=== PATIENT | male | born 2000 | race Caucasian/White ===

== ENCOUNTER 2018-11-30 16:31 | Emergency (ER) | payer SELFPAY ==
[2018-11-30 16:32] VITALS: BP 126/83; PULSE 113; RESP 18; TEMP 36.7; O2SAT 97; BMI 17.2
--- NOTE | 2018-11-30 17:27 | ED.DCSUM_ITS ---
History of Present Illness Chief Complaint: Male Pain/Injury Informant: Patient Onset: Days - 3 Narrative: White penile discharge for 3 days. Dysuria. Sexual intercourse new partner past 10 days with no protection. No history of STDs. No fevers. No ulcers. History of meth use, last used 3 days ago. Denies fever. Prior similar symptoms: No Past Medical History - Allergies and Home Meds Allergies/Adverse Reactions: Allergies No Known Allergies Allergy (Verified 11/30/18 16:32) Smoking Status: Current every day smoker Review of Systems All systems negative except as indicated General: Denies: Chills, Fever Gastrointestinal: Denies: Abdominal pain, Nausea, Vomiting Genitourinary: Reports: Dysuria Physical Exam Vital Signs/Narrative: Vital Signs Temp Pulse Resp BP Pulse Ox 11/30/18 16:32 98.1 F 113 H 18 126/83 H 97 Inital Vital Signs reviewed: Yes General: Well nourished, Well developed, No Acute Distress Head: Normocephalic, Atraumatic Eyes: Perrl, EOMI ENT: Moist mucous membranes, No rhinorrhea Neck: Supple, Nontender Cardiovascular: Regular rate, Regular rhythm, No murmurs Respiratory: No distress, CTA bilaterally, Chest nontender Abdomen: Soft, Nontender, Nondistended, Normal bowel sounds : - - No ulcerations, is white penile discharge. No testicular or scrotal tenderness. Back: Nontender, Normal Inspection Extremities: Nontender, No edema Skin: Normal color, No rash, - - Bilateral forearms intermittent puncture woun ds, no surrounding erythema or drainage. Nontender to palpation. Neurological: Alert, Oriented x3, Cranial nerves II-XII grossly intact, Normal Strength, Normal Sensation Psychological: Normal affect, Normal Mood Diagnostic/Tx/Re-eval - Medical Decision Making Patient history exam concerns for urethritis secondary to gonorrhea. Urine was sent for GC chlamydia. We will treat empirically with Rocephin and Zithromax. He is given follow-up as an outpatient. Discussed abstinence from meth use. ED Disposition - Plan for ED Patient: Disposition: Home or Assisted Living Diagnosis: Urethritis, Methamphetamine use Instructions: ED STD Male Treated, Understanding Methamphetamine Abuse and Addiction Referrals: Trish Mendez [NON-STAFF] - 3-5 Days
[2018-11-30] MEDS: Azithromycin 250 MG Tablet 1000 MG PO (18:07)
[2018-11-30] MEDS: Ceftriaxone 1 GM Vial 0.25 GM IM (18:07)
[2018-11-30 18:39] VITALS: BP 122/74; PULSE 65; RESP 16; TEMP 36.6; O2SAT 97
[2018-11-30 19:17] LABS: Chlamydia Trachomatis by PCR POSITIVE (Negative); Neisserai gonorrhoeae by PCR Positive (Negative)
[2018-11-30 19:18] LABS: Probe Check PASS
--- NOTE | 2018-11-30 19:44 | ED.RN ---
CALL FROM LAB. PT POSITIVE FOR GHONNARHEA,, AND CHLAMYDIA. DR. JERONIMO.
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
== END 2018-11-30 18:40 | disposition home or self-care (01) ==
LOC: ED 17:35
PROVIDERS: Emergency Provider Emergency Medicine
DX: A56.01 Chlamydial cystitis and urethritis (principal); A54.01 Gonococcal cystitis and urethritis, unspecified; F15.90 Other stimulant use, unspecified, uncomplicated; F17.200 Nicotine dependence, unspecified, uncomplicated
CPT/HCPCS: 87491; 87591; 96372; 99283

== ENCOUNTER 2019-04-17 02:48 | Emergency (ER) | payer OTHER, MEDICAID, SELFPAY ==
[2019-04-17] VITALS (8 sets, daily range): BP systolic 133–163; BP diastolic 72–99; PULSE 89–115; RESP 16–21; TEMP 36.4–37.2; O2SAT 95–100
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
--- NOTE | 2019-04-17 02:55 | EKG12_ITS ---
Test Reason : CG Blood Pressure : / mmHG Vent. Rate : 094 BPM Atrial Rate : 094 BPM P-R Int : 120 ms QRS Dur : 096 ms QT Int : 338 ms P-R-T Axes : 080 088 086 degrees QTc Int : 422 ms Normal sinus rhythm Normal ECG Confirmed by MULUGETA GOMEZ ([id number]), manager editorial VIKTORIA FRITZ ([id number]) on 04/21/2019 12:29:02 PM Referred By: Confirmed By:MULUGETA GOMEZ
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
[2019-04-17] MEDS: 0.9% Normal Saline 1,000 ML 999 ML IV ×2 (03:36→05:30)
[2019-04-17 03:42] LABS: Absolute Lymphocyte Count 1.92 X10^3/uL (0.83-4.51); Absolute Neutrophil Count 16.9 X10^3/uL (2.0-7.7); Basophil# 0.08 X10^3/uL; Basophil% 0.4 % (0-1); Eosinophil# 0.12 X10^3/uL; Eosinophils% 0.6 % (0-5); Hematocrit 43.9 % (40-54); Lymphocyte # 1.92 X10^3/ul (4.0); Lymphocyte % 9.3 % (19-41); Mean Corp Hgb Conc 34.2 g/dL (32-36); Mean Corpuscular Hgb 29.6 pg (27.0-32.0); Mean Corpuscular Volume 86.8 fL (80-94); Mean Platelet Vol. 8.8 fl (6.2-12.0); Monocyte# 1.31 X10^3/uL; Monocyte% 6.4 % (0-10); NRBC Flagged by Analyzer 0 % (0-5); Neutrophil # 16.92 X10^3/uL (2.7-7.7); Neutrophil % 82.1 % (47-70); Platelet Count 294 K/mm3 (150-450); RBC Distribution Width CV 13.1 % (11.6-14.6); Red Blood Count 5.06 M/mm3 (4.6-6.2); White Blood Count 20.6 K/mm3 (4.4-11.0)
[2019-04-17 03:51] LABS: International Normalized Ratio 1.1
[2019-04-17 03:57] LABS: Color, Urine Yellow (Yellow); Glucose, Dipstick Normal (Normal); Ketone-Dipstick 5 mg/dl (Negative); Leukocyte Esterase-Dipstick 25 /ul (Negative); Nitrite-Dipstick Negative (Negative); Occult Blood-Urine 150 /ul (Negative); Protein-Dipstick 500 mg/dl (Negative); Urine Bilirubin Dipstick Negative (Negative); Urine Clarity Sl. Cloudy (Clear); Urine Urobilinogen Normal (Normal); Urine pH 6.5 (5.0 - 8.0)
--- NOTE | 2019-04-17 04:00 | ED.RN ---
NO OLD EKGS
[2019-04-17 04:01] LABS: Vista UDS pH Range 6
[2019-04-17 04:03] LABS: Bacteria RARE /hpf (None Seen); Mucous, Urine 3+ /hpf (<or=2+); Red Blood Cells-Urine 0-5 SEEN /hpf (0-5); Squamous Epithelial Cells - UA 0-5 SEEN /hpf (0-5); White Blood Cells 0-5 SEEN /hpf (0-5)
[2019-04-17 04:03] LABS: AST(SGOT) 29 U/L (15-37); Alanine Aminotransfer ALT/SGPT 25 U/L (16-61); Albumin, Serum 3.9 g/dL (3.2-5.0); Alkaline Phosphatase 105 U/L (45-117); Anion Gap 8 (5-15); BUN 22 mg/dL (7-18); BUN/Creat Ratio 21.8 RATIO (10-20); Bilirubin, Direct 0.15 mg/dL (0.00-0.30); Calcium,Total 9.4 mg/dL (8.5-10.1); Chloride 105 mmol/L (98-107); Creatinine, Serum 1.01 mg/dL (0.70-1.30); EST Glomerular Filtration Rate 100 mL/min (>60); Est Glom Filt Rate - Afr Amer 121 mL/min (>60); Estimated Creatinine Clearance 110.23 ml/min; Globulin 4.1 g/dL (2.2-4.2); Glucose 107 mg/dL (74-106); Lipase 61 U/L (73-393); Potassium 4.5 mmol/L (3.5-5.1); Sodium Level 143 mmol/L (136-145)
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
[2019-04-17 04:34] LABS: Amphetamine Urine VISTA POSITIVE (<1000 ng/mL); Barbiturate Urine VISTA NEGATIVE (< 200 ng/mL); Benzodiazepine Urine VISTA NEGATIVE (< 200 ng/mL); Cocaine Urine VISTA NEGATIVE (< 300 ng/mL); Ecstacy Urine VISTA POSITIVE (< 500 ng/mL); Methadone Urine VISTA NEGATIVE (< 300 ng/mL); PCP Urine VISTA NEGATIVE (< 25 ng/mL); THC Urine VISTA NEGATIVE (< 50 ng/mL)
[2019-04-17 04:48] LABS: CPK Total, Creatine Kinase 377 U/L (39-308)
--- NOTE | 2019-04-17 05:38 | PCM.HP.STD ---
History of Present Illness The patient is a 18 year old M [] Past Medical History Allergies No Known Allergies Allergy (Verified 04/17/19 03:04) Home Medications: Ambulatory Orders Medication Instructions Recorded NK 04/17/19 Smoking Status: Current every day smoker - Physical Exam Vital Signs Temp Pulse Resp BP Pulse Ox 99.0 F 106 H 20 H 152/77 H 98 04/17/19 05:02 04/17/19 05:37 04/17/19 05:37 04/17/19 05:37 04/17/19 05:37 Oxygen Delivery Method Room Air Weight: 66.8 kg Body Mass Index (BMI) 20.0 Laboratory Tests Past 24 Hrs 04/17/19 04/17/19 04/17/19 03:30 03:30 03:30 WBC 20.6 H RBC 5.06 Hgb 15.0 Hct 43.9 MCV 86.8 MCH 29.6 MCHC 34.2 RDW Std Deviation 41.0 RDW Coeff of Marquita 13.1 Plt Count 294 MPV 8.8 Immature Gran % (Auto) 1.200 H Neut % (Auto) 82.1 H Lymph % (Auto) 9.3 L [place] % (Auto) 6.4 Eos % (Auto) 0.6 Baso % (Auto) 0.4 Absolute Neuts (auto) 16.9 H Absolute Lymphs (auto) 1.92 Nucleated RBC % 0 PT INR Sodium 143 Potassium 4.5 Chloride 105 Carbon Dioxide 30.0 Anion Gap 8 BUN 22 H Creatinine 1.01 Estim Creat Clear Calc 110.23 Est GFR (MDRD) Af Amer 121 Est GFR (MDRD) Non-Af 100 BUN/Creatinine Ratio 21.8 H Glucose 107 H Calcium 9.4 Total Bilirubin 0.80 Direct Bilirubin 0.15 AST 29 ALT 25 Alkaline Phosphatase 105 Total Creatine Kinase Total Protein 8.0 Albumin 3.9 Globulin 4.1 Lipase 61 L Urine Color Urine Clarity Urine pH Ur Specific [place] Urine Protein Urine Glucose (UA) Urine Ketones Urine Occult Blood Urine Nitrite Urine Bilirubin Urine Urobilinogen Ur Leukocyte Esterase Urine RBC Urine WBC Ur Squamous Epith Cells Urine Bacteria Urine Mucus Urine Opiates Screen Urine Methadone Screen Ur Barbiturates Screen Ur Phencyclidine Scrn Ur Amphetamines Screen U Methamphetamin-MDMA U Benzodiazepines Scrn Urine Cocaine Screen U Cannabinoids Screen Ur Drug Screen Comment Ethyl Alcohol 4.0 Blood Type Antibody Screen 04/17/19 04/17/19 04/17/19 03:30 03:30 03:30 WBC RBC Hgb Hct MCV MCH MCHC RDW Std Deviation RDW Coeff of Marquita Plt Count MPV Immature Gran % (Auto) Neut % (Auto) Lymph % (Auto) [place] % (Auto) Eos % (Auto) Baso % (Auto) Absolute Neuts (auto) Absolute Lymphs (auto) Nucleated RBC % PT 14.0 INR 1.1 Sodium Potassium Chloride Carbon Dioxide Anion Gap BUN Creatinine Estim Creat Clear Calc Est GFR (MDRD) Af Amer Est GFR (MDRD) Non-Af BUN/Creatinine Ratio Glucose Calcium Total Bilirubin Direct Bilirubin AST ALT Alkaline Phosphatase Total Creatine Kinase 377 H Total Protein Albumin Globulin Lipase Urine Color Urine Clarity Urine pH Ur Specific [place] Urine Protein Urine Glucose (UA) Urine Ketones Urine Occult Blood Urine Nitrite Urine Bilirubin Urine Urobilinogen Ur Leukocyte Esterase Urine RBC Urine WBC Ur Squamous Epith Cells Urine Bacteria Urine Mucus Urine Opiates Screen Urine Methadone Screen Ur Barbiturates Screen Ur Phencyclidine Scrn Ur Amphetamines Screen U Methamphetamin-MDMA U Benzodiazepines Scrn Urine Cocaine Screen U Cannabinoids Screen Ur Drug Screen Comment Ethyl Alcohol Blood Type A POSITIVE Antibody Screen NEGATIVE 04/17/19 04/17/19 03:52 03:52 WBC RBC Hgb Hct MCV MCH MCHC RDW Std Deviation RDW Coeff of Marquita Plt Count MPV Immature Gran % (Auto) Neut % (Auto) Lymph % (Auto) [place] % (Auto) Eos % (Auto) Baso % (Auto) Absolute Neuts (auto) Absolute Lymphs (auto) Nucleated RBC % PT INR Sodium Potassium Chloride Carbon Dioxide Anion Gap BUN Creatinine Estim Creat Clear Calc Est GFR (MDRD) Af Amer Est GFR (MDRD) Non-Af BUN/Creatinine Ratio Glucose Calcium Total Bilirubin Direct Bilirubin AST ALT Alkaline Phosphatase Total Creatine Kinase Total Protein Albumin Globulin Lipase Urine Color Yellow Urine Clarity Sl. Cloudy Urine pH 6.5 Ur Specific [place] 1.020 Urine Protein 500 H Urine Glucose (UA) Normal Urine Ketones 5 H Urine Occult Blood 150 H Urine Nitrite Negative Urine Bilirubin Negative Urine Urobilinogen Normal Ur Leukocyte Esterase 25 H Urine RBC 0-5 SEEN Urine WBC 0-5 SEEN Ur Squamous Epith Cells 0-5 SEEN Urine Bacteria RARE Urine Mucus 3+ Urine Opiates Screen NEGATIVE Urine Methadone Screen NEGATIVE Ur Barbiturates Screen NEGATIVE Ur Phencyclidine Scrn NEGATIVE Ur Amphetamines Screen POSITIVE H U Methamphetamin-MDMA POSITIVE H U Benzodiazepines Scrn NEGATIVE Urine Cocaine Screen NEGATIVE U Cannabinoids Screen NEGATIVE Ur Drug Screen Comment Ethyl Alcohol Blood Type Antibody Screen
== END 2019-04-17 07:50 | disposition short-term general hospital (02) ==
PROVIDERS: Emergency Provider Emergency Medicine
DX: R41.82 Altered mental status, unspecified (principal); R91.8 Other nonspecific abnormal finding of lung field; V89.2XXA Person injured in unspecified motor-vehicle accident, traffic, initial encounter; Y93.9 Activity, unspecified; Y92.9 Unspecified place or not applicable; J32.9 Chronic sinusitis, unspecified; K59.00 Constipation, unspecified; F15.10 Other stimulant abuse, uncomplicated; F17.200 Nicotine dependence, unspecified, uncomplicated
CPT/HCPCS: 70450; 71045; 71260; 72125; 72170; 74177; 80048; 80076; 80307; 80320; 81001; 82550; 83690; 85025; 85610; 86850; 86900; 86901; 93005; 96360; 96361; 99285; J7030; Q9967; G0480

== ENCOUNTER 2019-08-02 23:43 | Inpatient (IN) | payer OTHER, MEDICAID, SELFPAY ==
[2019-08-02 23:44] VITALS: BP 146/112; PULSE 147; RESP 18; TEMP 36.5; O2SAT 98; BMI 20.6
[2019-08-02 23:50] VITALS: BP 100/77; PULSE 145; RESP 20
[2019-08-03] VITALS (30 sets, daily range): BP systolic 75–123; BP diastolic 33–74; PULSE 85–140; RESP 10–28; TEMP 36.6–37.9; O2SAT 92–100; BMI 21.4; BMI 21.5
--- NOTE | 2019-08-03 00:15 | ED.VIS.GEN ---
History of Present Illness Chief Complaint: Overdose Informant: Patient, [employer] Installer Helper Onset: Today Associated Symptoms: nausea, shaky, thirsty Narrative: Patient has been addicted to heroin for the last year or so, he was with some friends and accidentally overdosed tonight, patient denies this being a suicide attempt. He became apneic and unconscious and EMS was called. They gave 2 vials of Narcan intranasal, and when that did not help, they placed an intraosseous line and gave him 2 more vials of Narcan, which woke him up. He now feels malaised and shaky and nauseated. States he is gone through detox before, when asked if he is interested in a tonight he states no. Past Medical History - Allergies and Home Meds Allergies/Adverse Reactions: Allergies No Known Allergies Allergy (Verified 08/02/19 23:47) Primary Care Physician: Care Physician,No Primary [Primary Care Provider] - Past Medical History: None Surgical History: noncontributory Smoking Status: Current every day smoker Alcohol: None Drugs: Heroin Review of Systems General: Reports: Malaise. Denies: Chills, Fever, Sweats Eyes: Denies: Visual changes - bilaterally, Diplopia ENT: Denies: Rhinorrhea, Sore throat Cardiovascular: Denies: Chest pain, Palpitations Respiratory: Denies: Dyspnea, Cough, Dyspnea on exertion Gastrointestinal: Reports: Nausea. Denies: Abdominal pain, Vomiting, Diarrhea, Melena, Hematochezia Genitourinary: Denies: Dysuria, Hematuria, Frequency Musculoskeletal: Denies: Back pain, Extremity Pain Skin: Denies: Rash, Wounds Neurological: Denies: Headache, Weakness, Numbness Physical Exam Vital Signs/Narrative: Vital Signs Temp Pulse Resp BP Pulse Ox 08/02/19 23:44 97.7 F L 147 H 18 146/112 H 98 Inital Vital Signs reviewed: Yes General: Well nourished, Well developed, No Acute Distress Head: Normocephalic, Atraumatic Eyes: Perrl, EOMI ENT: Moist mucous membranes, No rhinorrhea Neck: Supple, Nontender Cardiovascular: Regular rate, Regular rhythm, No murmurs, Tachycardia Respiratory: No distress, CTA bilaterally, Chest nontender Abdomen: Soft, Nontender, Nondistended, Normal bowel sounds Back: Nontender, Normal Inspection Extremities: Nontender, No edema Skin: Normal color, No rash, No Trauma - No signs of upper extremity injection site infection Neurological: Alert, Oriented x3, Cranial nerves II-XII grossly intact, Normal Strength, Normal Sensation Psychological: Normal Mood, - - Anxious Diagnostic/Tx/Re-eval Impressions Chest CTA 08/03/19 05:05 IMPRESSION: 1. No pulmonary embolus detected. 2. Bilateral lower lobe groundglass opacities, possibly related to early/mild pneumonia or aspiration. Individualized dose optimization techniques were used for this CT. at 0627 Reported and signed by: Kristi Marquis MD Electronically Signed: Kristi Marquis MD at 6:27 EST Tel , Service support , 08/03/19 05:05 CTA Chest W/WO Contrast [CT] Stat 08/03/19 07:07 Chest 1 View (Portable) [RAD] Stat Laboratory Results 08/03/19 08/03/19 05:31 05:31 WBC 16.5 H RBC 4.04 L Hgb 12.2 L Hct 35.4 L MCV 87.6 MCH 30.2 MCHC 34.5 RDW Std Deviation 41.1 RDW Coeff of Marquita 12.8 Plt Count 219 MPV 9.0 Immature Gran % (Auto) 0.800 Neut % (Auto) 85.0 H Lymph % (Auto) 4.8 L [place] % (Auto) 9.3 Eos % (Auto) 0.0 Baso % (Auto) 0.1 Absolute Neuts (auto) 14.1 H Absolute Lymphs (auto) 0.80 L Nucleated RBC % 0 [address] Review May foll Sodium 138 Potassium 4.8 Chloride 105 Carbon Dioxide 25.0 Anion Gap 8 BUN 16 Creatinine 1.21 Estim Creat Clear Calc 95.18 Est GFR (MDRD) Af Amer 98 Est GFR (MDRD) Non-Af 81 BUN/Creatinine Ratio 13.2 Glucose 84 Calcium 8.1 L Troponin I 0.804 H* - Rhythm Strip Rhythm Strip: Sinus Tach Rate: 140 Ectopy: None - Medical Decision Making Patient was observed and was given a small amount of Ativan and Phenergan to help with his nausea and apparent withdrawal symptoms, given his symptoms with Narcan and tachycardia. He felt better on multiple re-evaluations, but for the next several hours his tachycardia did not improve and his blood pressure dropped so we treated him with IV fluids. After the second liter, he has a blood pressure of 88/74 and a heart rate of 135. His pulse ox is 97 on room air. He states he feels better but feels like he needs to exert extra effort to take a deep breath. He has no pleuritic chest pain and does not feel dyspneic. He states admits that he felt fine prior to using heroin today. He states he is a daily user. Given all of this, I feel it would be in his best interest to test him further. Differential here includes dysrhythmia, pulmonary embolus, other cardiac etiologies, metabolic derangement, aspiration. Testing shows a leukocytosis, and elevated troponin, and CTA ruled out large/central pulmonary embolus but shows bilateral lower lobe groundglass opacities which may represent aspiration pneumonia. I will treat him empirically as this. After 3 L his pressure is 75/60, his heart rate has improved, I will add a lactate and I feel he needs a central line and pressors with ICU admission. Levophed ordered after chest x-ray verified central line placement. Further history obtained at this time: Patient was receiving CPR by his friends just after the overdose prior to EMS arrival. I suspect his troponin is a combination of transient hypoxemia and possibly due to receiving CPR. According to EMS, he was never pulseless for them. He was apnea, however. - Critical Care Time Critical care time (excluding procedures): 30-74 minutes - 40 minutes, including time spent discussing with consultants, arranging admission, performing direct patient care at the bedside. Time spent excludes procedure time. Procedures Procedure(s): Central line placement --indication: Septic shock, pressor support. Sterile prep and drape in a sterile fashion with chlorhexidine in the right subclavian vein site, gown and glove. Locally anesthetized with 5 cc of plain 1% lidocaine, 16 cm triple-lumen catheter placed via modified Seldinger technique, there is no complication. There were PVCs with wire placement, indicating correct placement. All 3 ports jazmin back dark red pulsatile blood and flushed without difficulty. It was sutured in place. Placement was verified by chest x-ray. No pneumothorax. ED Disposition - Plan for ED Patient: Disposition: Acute Care Hospital [facility] Diagnosis: Aspiration pneumonitis, Elevated troponin, Septic shock, Accidental heroin overdose Referrals: Care Physician,No Primary [Primary Care Provider] -
[2019-08-03] MEDS: proMETHazine 25 MG/ML Syringe 6.25 MG IV (00:32)
[2019-08-03] MEDS: LORazepam 2 MG/ML Syringe 0.5 MG IV (00:32)
[2019-08-03] MEDS: 0.9% Normal Saline 1,000 ML 999 ML IV ×4 (02:22→07:23)
--- NOTE | 2019-08-03 02:22 | NURSING ---
I/O LT LOWER LEG INITATED BY SQUAD TOO PAINFUL FOR IV BOLUS, SO THIS WAS REMOVED AND SL STARTED.
--- NOTE | 2019-08-03 05:05 | CT_ITS ---
HISTORY: TACHYCARDIA,SOB, ELEVATED BP AND WBC,PT USED HEROIN AND HAD AGONAL RESPIRATIONS,NARCAN WAS GIVEN ADDITIONAL HISTORY: None provided. TECHNIQUE: CT angiogram images of the chest were obtained with 75 mL Isovue-370 IV contrast as per pulmonary angiogram protocol. 3D MIP images used to aid in evaluation for pulmonary embolism. Number of images including paperwork: 1132 A radiation dose optimization technique was used for this scan. COMPARISON: None FINDINGS: PULMONARY ARTERIES: No pulmonary arterial filling defects. AORTA AND GREAT VESSELS: Unremarkable. HEART/PERICARDIUM: Unremarkable. MEDIASTINUM: Small amount of thymic tissue noted. ADENOPATHY: Small mediastinal and hilar nodes, not definitely enlarged by size criteria.. THYROID: Unremarkable visualized portions. LUNG PARENCHYMA: No consolidation or mass. Groundglass opacities are noted in the lower lobes, predominantly posterior and superior aspects. Mild peribronchial thickening. PLEURAL SPACES: Unremarkable. UPPER ABDOMEN: Unremarkable. OSSEOUS AND SOFT TISSUE STRUCTURES: No acute skeletal findings. CT/CTA Chest W/WO Contrast IMPRESSION: 1. No pulmonary embolus detected. 2. Bilateral lower lobe groundglass opacities, possibly related to early/mild pneumonia or aspiration. Individualized dose optimization techniques were used for this CT. at 0627 Reported and signed by: Kristi Marquis MD Electronically Signed: Kristi Marquis MD at 6:27 EST Tel , Service support ,
--- NOTE | 2019-08-03 05:05 | EKG12_ITS ---
Test Reason : OVERDOSE Blood Pressure : / mmHG Vent. Rate : 117 BPM Atrial Rate : 117 BPM P-R Int : 120 ms QRS Dur : 078 ms QT Int : 308 ms P-R-T Axes : 075 091 087 degrees QTc Int : 429 ms Sinus tachycardia Rightward axis Nonspecific T wave abnormality Abnormal ECG Confirmed by KARINA RAYMUNDO, JO ([id number]), videotape editor VIKTORIA FRITZ ([id number]) on 08/05/2019 11:24:18 AM Referred By: ALLIE Confirmed By:JO COLLINS MD
[2019-08-03 05:41] LABS: Absolute Neutrophil Count 14.1 X10^3/uL (2.0-7.7); Basophil# 0.02 X10^3/uL; Basophil% 0.1 % (0-1); Hematocrit 35.4 % (40-54); Hemoglobin 12.2 g/dL (13.0-16.5); Lymphocyte % 4.8 % (19-41); Mean Corp Hgb Conc 34.5 g/dL (32-36); Mean Corpuscular Hgb 30.2 pg (27.0-32.0); Mean Corpuscular Volume 87.6 fL (80-94); Monocyte# 1.53 X10^3/uL; Monocyte% 9.3 % (0-10); NRBC Flagged by Analyzer 0 % (0-5); Neutrophil # 14.06 X10^3/uL (2.7-7.7); POSITIVE DIFFERENTIAL YES; Platelet Count 219 K/mm3 (150-450); RBC Distribution Width CV 12.8 % (11.6-14.6); RBC Distribution Width SD 41.1 fl (35.1-43.9); Red Blood Count 4.04 M/mm3 (4.6-6.2); White Blood Count 16.5 K/mm3 (4.4-11.0)
[2019-08-03 05:42] LABS: Differential Indicated SCAN CRITERIA MET
[2019-08-03 06:13] LABS: Anion Gap 8 (5-15); BUN 16 mg/dL (7-18); BUN/Creat Ratio 13.2 RATIO (10-20); Calcium,Total 8.1 mg/dL (8.5-10.1); Chloride 105 mmol/L (98-107); Creatinine, Serum 1.21 mg/dL (0.70-1.30); EST Glomerular Filtration Rate 81 mL/min (>60); Est Glom Filt Rate - Afr Amer 98 mL/min (>60); Estimated Creatinine Clearance 95.18 ml/min; Glucose 84 mg/dL (74-106); Potassium 4.8 mmol/L (3.5-5.1); Sodium Level 138 mmol/L (136-145)
--- NOTE | 2019-08-03 06:13 | ED.RN ---
TROPONIN OF 0.[address] KELLEY. VERBALIZES UNDERSTANDING
--- NOTE | 2019-08-03 07:09 | RAD_ITS ---
STUDY: X-RAY CHEST REASON FOR EXAM: Male, 18 years old. LINE PLACEMENT TECHNIQUE: Portable chest COMPARISON: 04/17/2019 FINDINGS: There is a central venous catheter through right subclavian approach. The tip is in the superior vena cava, right atrial junction. There is no pneumothorax. There are mild bibasilar infiltrates.. There is no demonstrated pleural abnormality. Normal size heart. Normal mediastinum and junior. Normal visualized pulmonary arteries. Normal visualized aortic arch and descending thoracic aorta. Normal visualized thoracic spine. Normal visualized ribs, clavicles, and shoulders. There is no demonstrated abnormality of the visualized soft tissue structures of the upper abdomen. RAD/Chest 1 View (Portable) IMPRESSION: Placement of central venous catheter as above Mild bibasilar infiltrates Electronically Signed: Star Zhu, at 7:46 EST Tel , Service support ,
[2019-08-03 07:37] LABS: Lactic Acid 1.1 mmol/L (0.4-1.9)
--- NOTE | 2019-08-03 07:39 | NURSING ---
ICU TERELETSKY ASPIRATION PNEUMONITIS, ACCIDENTAL HEROIN OD
--- NOTE | 2019-08-03 08:11 | NURSING ---
ICU 6
--- NOTE | 2019-08-03 08:20 | PCM.HP.STD ---
Problem List (1) Accidental heroin overdose Status: Acute Qualifiers: Encounter type: initial encounter Qualified Code(s): T40.1X1A - Poisoning by heroin, accidental (unintentional), initial encounter History of Present Illness Date of Admission: 08/03/19 Chief Complaint: Heroin overdose The patient is a 18 year old M who was brought in to the emergency room at [facility] for evaluation after being found by a friend unresponsive with agonal respirations, he was brought in by squad who administered Narcan-patient is a known heroin user, he uses IV heroin. Patient initially responded well to Narcan but his blood pressure remained low in the emergency room, multiple fluid boluses were administered with minimal effect on raising the patient's blood pressure. Patient has CT of the chest which showed bilateral lower lobe groundglass opacities concerning for aspiration, patient's white blood cell count was elevated, patient's chemistry panel was unremarkable, and the patient's troponin was elevated. EKG showed a sinus tachycardia with nonspecific ST-T wave changes and right axis deviation. Patient will be admitted to ICU, I talked briefly with critical care about his admission. I also called patient's grandfather regarding his medical care at the request of the patient. Grandfather's phone number is [phone] Past Medical History Allergies No Known Allergies Allergy (Verified 08/02/19 23:47) Home Medications: Ambulatory Orders Medication Instructions Recorded NK 04/17/19 Surgical History: no surgical history Psychiatric History: No pertinent psych hx Lives: Alone Smoking Status: Current every day smoker Tobacco Use: Cigarettes Alcohol: None Drugs: Heroin - *Family History Maternal History Items: No pertinent history - in MVA Paternal History Items: No pertinent history Review of Systems Constitutional: Denies: Anorexia, Chills, Fever, Night Sweats, Malaise, Weakness, Weight Change Eyes: Denies: Cataracts, Conjunctivae Inflammation, Double vision, Drainage HEENT: Denies: Difficulty Swallowing, Dysphasia, Ear Pain, Eye Pain, Hearing Changes, Nasal bleeding, Nasal Congestion, Post Nasal Drip Cardiovascular: Denies: Chest Pain, Claudication, Chest Pressure, Chest Tightness, Edema, Palpitations Respiratory: Denies: Cough, Hemoptysis, Pleuritic Pain, Shortness of Breath, Shortness of breath at rest, Shortness of breath upon exertion Gastrointestinal: Denies: Abdominal Pain, Constipation, Diarrhea, Hematemesis, Hematochezia, Nausea, Melena, Vomiting Genitourinary: Denies: Dysuria, Frequency, Hematuria, Hesitancy, Urgency Musculoskeletal: Denies: Back Pain, Foot Pain, Hand Pain, Joint Pain, Joint stiffness, Joint swelling, Joint Tenderness, Leg Pain Skin: Denies: Dryness, Pruritis, Rash Neurological: Denies: Blurred vision, Double vision, Slurred speech, Difficulty swallowing, Focal weakness, Headaches, Incoordination, Numbness, Tingling Psychiatric: Denies: Anxiety, Depression, Homicidal Ideations, Suicidal Ideations Endocrine: Denies: Change in Body Habitus, Heat/ Cold Intolerance, Polydipsia, Polyuria Hematologic/ Lymphatic: Denies: Adenopathy, Anemia, Easy Bruising, Easy Bleeding, Petechiae, Purpura VTE Information - Inpt Only VTE Present on Admission: No VTE Mechan Device Prophylaxis: SCD's VTE Pharm Prophylaxis ordered?: No Reason prophylaxis not ordered:: Treatment Not Indicated Patient Problems: Active and Suspected Problems Aspiration pneumonitis (Acute) Elevated troponin (Acute) Septic shock (Acute) Accidental heroin overdose (Acute) - Physical Exam Vitals/I&O's: Vital Signs Temp Pulse Resp BP Pulse Ox 99.7 F H 103 H 17 109/55 L 99 08/03/19 08:03 08/03/19 08:03 08/03/19 08:03 08/03/19 08:03 08/03/19 08:03 Oxygen Delivery Method Room Air Weight: 69.1 kg Body Mass Index (BMI) 20.6 Intake and Output for Last 24 Hours 08/01/19 08/02/19 08/03/19 23:59 23:59 23:59 Intake Total 3251.63 / 3251.63 Balance 3251.63 / 3251.63 General: Oriented x3, Cooperative, No apparent distress, Well developed, Well nourished, Lethargic HEENT: Atraumatic, PERRLA, EOMI, Normocephalic Oral: Moist Mucosa Neck: Supple, Trachea Midline, Thyroid Normal Size and Texture Lungs: Clear to auscultation, Normal air movement, No rhonchi, No wheeze, No rales Cardiovascular: Regular rate, Regular Rhythm, Normal S1, Normal S2, No murmurs, PMI Normal, No rub noted, No Gallop Abdomen: Bowel Sounds Present, Soft, Non Tender, Non-Distended Extremities: No clubbing, No cyanosis, No edema, Capillary Refill Less than 3 Seconds Skin: No rashes, No breakdown Musculoskeletal: No Tenderness to Palpation of Joints or Extremities Neurological: Cranial nerves II-XII grossly intact, Neuro grossly intact, Sensory exam intact to light touch and pain Psych/Mental Status: Normal Affect, Appropriate, Alert and oriented to time, place, person, mood and affect Laboratory Results 08/03/19 05:31: WBC 16.5 H, RBC 4.04 L, Hgb 12.2 L, Hct 35.4 L, MCV 87.6, MCH 30.2, MCHC 34.5, RDW Std Deviation 41.1, RDW Coeff of Marquita 12.8, Plt Count 219, MPV 9.0, Immature Gran % (Auto) 0.800, Neut % (Auto) 85.0 H, Lymph % (Auto) 4.8 L, [place] % (Auto) 9.3, Eos % (Auto) 0.0, Baso % (Auto) 0.1, Absolute Neuts (auto) 14.1 H, Absolute Lymphs (auto) 0.80 L, Nucleated RBC % 0, Diff Path Review November08/03/19 05:31: Sodium 138, Potassium 4.8, Chloride 105, Carbon Dioxide 25.0, Anion Gap 8, BUN 16, Creatinine 1.21, Estim Creat Clear Calc 95.18, Est GFR (MDRD) Af Amer 98, Est GFR (MDRD) Non-Af 81, BUN/Creatinine Ratio 13.2, Glucose 84, Calcium 8.1 L, Troponin I 0.804 H* 08/03/19 07:00: Lactic Acid 1.1 Current Medications Norepinephrine Bitartrate 8 mg (/ Sodium Chloride) 250 mls @ 9.375 mls/hr CONT INF .[id number] [facility]; Protocol Last Titration: 08/03/19 08:03 Dose: 5 mcg/min, 9.4 mls/hr Documented by: Assessment/Plan All Active Problems Aspiration pneumonitis (Acute) Elevated troponin (Acute) Septic shock (Acute) Accidental heroin overdose (Acute) #1 septic shock-secondary to aspiration pneumonia-patient will be admitted to ICU, Levophed will be continued-hopefully this can be weaned down or off the patient, patient has had multiple fluid boluses in the emergency room. #2 aspiration pneumonia-patient will be kept on Unasyn #3 heroin overdose #4 heroin addiction-patient will be started on protocol for opiate withdrawal stabilization when he is safe to start these medications. #5 elevated troponin-probably secondary to hypoxia, I do not believe he needs repeat troponins cycled Code Visit Inpatient E&M: 93988 Init Hosp L3
--- NOTE | 2019-08-03 08:22 | CON.PCM_ITS ---
Reason for Consult Date of Consultation: 08/03/19 Reason for Consultation: Distributive shock/heroin overdose History of Present Illness: The patient is a 18-year-old male, with a history as outlined below, who presented to the emergency department on August 03 following an accidental opiate overdose. The patient apparently became apneic and unconscious. EMS was contacted and provided both intranasal and IV Narcan. The patient responded positively to reversal with Narcan. The patient does report a longstanding history of heroin dependency, with 1 previous overdose in the past. On presentation to the emergency department, the patient was noted to be afebrile, but was tachycardic and tachypneic. He was saturating 98% on room air. Laboratory evaluation revealed an elevated white blood cell count to 16,000. Chemistry profile was largely unrevealing. Lactate was within normal limits. Initial troponin was elevated to 0.804. A CTA chest was obtained which revealed no evidence for pulmonary embolism. Groundglass opacities were noted in the bilateral lower lobes. During the patient's emergency department stay, he remained tachycardic and subsequently developed hypotension. He was treated with supplemental IV fluid hydration. Unfortunately, the patient was not responsive to fluid resuscitation. Therefore, a central venous catheter was placed and the patient was started on Levophed to maintain hemodynamic stability. In addition, he was placed on empiric antimicrobials. He was then transferred to the medical intensive care unit for further management. Past Medical History Allergies No Known Allergies Allergy (Verified 08/02/19 23:47) Home Medications: Ambulatory Orders Medication Instructions Recorded NK 04/17/19 Surgical History: noncontributory Smoking Status: Current every day smoker Alcohol: None Drugs: Heroin - *Family History Maternal History Items: No pertinent history - in MVA Paternal History Items: No pertinent history Review of Systems Constitutional: Denies: Chills, Fever Eyes: Denies: Blurred vision, Double vision HEENT: Denies: Head Aches, Sinus Congestion, Sinus Drainage Cardiovascular: Denies: Chest Pain, Palpitations Respiratory: Reports: Shortness of Breath Gastrointestinal: Denies: Abdominal Pain, Nausea, Vomiting Genitourinary: Denies: Dysuria Musculoskeletal: Denies: Joint Pain, Joint Tenderness Skin: Denies: Rash, Wounds Neurological: Denies: Numbness, Tingling, Focal weakness Psychiatric: Denies: Anxiety, Depression, Homicidal Ideations, Suicidal Ideations Hematologic/ Lymphatic: Denies: Easy Bruising, Easy Bleeding Patient Problems: Active and Suspected Problems Aspiration pneumonitis (Acute) Elevated troponin (Acute) Septic shock (Acute) Accidental heroin overdose (Acute) Objective: The patient's most recent lab work, culture data and imaging studies have all been personally reviewed. - Physical Exam Vitals/I&O's: Vital Signs Temp Pulse Resp BP Pulse Ox 99.7 F H 103 H 17 109/55 L 99 08/03/19 08:03 08/03/19 08:03 08/03/19 08:03 08/03/19 08:03 08/03/19 08:03 Oxygen Delivery Method Room Air Weight: 152 lb 5.431 oz Body Mass Index (BMI) 20.6 Intake and Output for Last 24 Hours 08/01/19 08/02/19 08/03/19 23:59 23:59 23:59 Intake Total 3251.63 / 3251.63 Balance 3251.63 / 3251.63 General: Alert, Cooperative, No apparent distress HEENT: Atraumatic, PERRLA, Normocephalic Oral: No Gingival or Mucosal Lesions/ Ulcerations Neck: Supple, No Nodes, Trachea Midline, - - Central venous catheter currently in place Lungs: Normal air movement, No rhonchi, No wheeze, No rales Cardiovascular: Regular rate, Regular Rhythm, Normal S1, Normal S2 Abdomen: Bowel Sounds Present, Soft, Non Tender Extremities: No clubbing, No cyanosis, No edema Skin: - - Injection site at left antecubital fossa does not appear grossly infected. Musculoskeletal: No Muscle Wasting Lymphatic: No Cervical, Supraclavicular, or Inguinal Adenopathy Neurological: Neuro grossly intact Psych/Mental Status: Normal Affect, Appropriate Labs (Last 48 Hours) 08/03/19 08/03/19 08/03/19 05:31 05:31 07:00 WBC 16.5 H RBC 4.04 L Hgb 12.2 L Hct 35.4 L MCV 87.6 MCH 30.2 MCHC 34.5 RDW Std Deviation 41.1 RDW Coeff of Marquita 12.8 Plt Count 219 MPV 9.0 Immature Gran % (Auto) 0.800 Neut % (Auto) 85.0 H Lymph % (Auto) 4.[address] [facility] % (Auto) 9.3 Eos % (Auto) 0.0 Baso % (Auto) 0.1 Absolute Neuts (auto) 14.1 H Absolute Lymphs (auto) 0.80 L Nucleated RBC % 0 [address] Review May foll Sodium 138 Potassium 4.8 Chloride 105 Carbon Dioxide 25.0 Anion Gap 8 BUN 16 Creatinine 1.21 Estim Creat Clear Calc 95.18 Est GFR (MDRD) Af Amer 98 Est GFR (MDRD) Non-Af 81 BUN/Creatinine Ratio 13.2 Glucose 84 Lactic Acid 1.1 Calcium 8.1 L Troponin I 0.804 H* Clinical Impression(s) from Imaging Studies Chest CTA 08/03/19 05:05 IMPRESSION: 1. No pulmonary embolus detected. 2. Bilateral lower lobe groundglass opacities, possibly related to early/mild pneumonia or aspiration. Individualized dose optimization techniques were used for this CT. at 0627 Reported and signed by: Kristi Marquis MD Electronically Signed: Kristi Marquis MD at 6:27 EST Tel , Service support , Chest X-Ray 08/03/19 07:09 IMPRESSION: Placement of central venous catheter as above Mild bibasilar infiltrates Electronically Signed: Star Zhu at 7:46 EST Tel , Service support , Current Medications Norepinephrine Bitartrate 8 mg (/ Sodium Chloride) 250 mls @ 9.375 mls/hr CONT INF .[id number] [facility]; Protocol Last Titration: 08/03/19 08:03 Dose: 5 mcg/min, 9.4 mls/hr Documented by: Assessment/Plan Active and Suspected Problems Aspiration pneumonitis (Acute) Elevated troponin (Acute) Septic shock (Acute) Accidental heroin overdose (Acute) RECOMMENDATIONS: 1. Start empiric Unasyn to cover for potential aspiration. 2. Obtain blood and urine cultures. 3. Continue Levophed and attempt to maintain a mean arterial pressure at or above 65 mmHg. 4. Trend troponins and obtain echocardiogram. 5. Check MRSA screen. IMPRESSIONS: 1. Distributive shock While sepsis secondary to aspiration pneumonia is a possibility, the patient's hemodynamic status may also be the sequelae of his recent opiate overdose. His mentation has improved, nonetheless. I agree with continuing empiric antimicrobials for now. The patient has been volume resuscitated and remains on Levophed at a low dose to maintain a mean arterial pressure at or above 65 mmHg. Given that the patient did have an elevated troponin, we will plan to recheck that level to ensure that it is downtrending. An echocardiogram has also been ordered. Will obtain blood cultures as well, given the patient's IV drug use. 2. History of heroin dependency with overdose The patient's acute intoxication was reversed with Narcan. He will remain on Buprenorphine along with as needed medications to control any symptoms of withdrawal. 3. Troponin elevation Potentially secondary to CPR that the patient received while unconscious. Nevertheless, will trend troponins and obtain echocardiogram. TIME: 38 minutes of critical care time, independent of procedures, was spent addressing the patient's distributive shock, possible aspiration pneumonia, history of heroin dependency with overdose, troponin elevation, review of all data and collaboration with the care team. ([id number]) Code Visit 9xxxx: [id number] Critical care first hour
--- NOTE | 2019-08-03 08:58 | ECHOD_ITS ---
Reason For Study: DYSPNEA Procedure This was a 2D Doppler, Color Flow transthoracic echocardiogram. Exam performed portable in ICU/CCU. Left Ventricle Normal LV size. Left ventricular systolic function is normal. The estimated ejection fraction is 60 %. No regional wall motion abnormalities noted. Right Ventricle Normal RV size. Normal systolic function. Atria Normal left atrium. Normal right atrium. Mitral Valve Normal mitral valve. Tricuspid Valve Normal tricuspid valve. Mild to moderate (1-2+) tricuspid valve insufficiency. Pulmonary artery systolic pressure is 60 mmHg. Aortic Valve Normal aortic valve. Trisinus/trileaflet aortic valve. Pulmonic Valve Normal pulmonic valve. Great Vessels Normal aortic root. The pulmonary artery is normal size. Normal inferior vena cava. Pericardium/Pleural No pericardial effusion. MMode/2D Measurements & Calculations LVIDd: 5.2 cm IVSd: 0.71 cm LAV(MOD-bp): 37.0 ml LVIDs: 3.5 cm LVPWd: 0.90 cm LAV(MOD-bp) Indexed: 19.5 ml/m2 RVDd: 4.0 cm FS: 33.5 % LAV(MOD-sp2): 44.2 ml LAV(MOD-sp4): 26.1 ml LA A4 area: 13.3 cm2 RA A4 area: 11.0 cm2 Time Measurements MV dec time: 0.23 sec Doppler Measurements & Calculations MV E max mayo: 109.5 cm/sec Lat Peak E' Mayo: 20.1 cm/sec Med Peak E' Mayo: 10.2 cm/sec MV A max mayo: 68.4 cm/sec E/E' lat: 5.4 E/E' med: 10.7 MV E/A: 1.6 Ao V2 max: 143.3 cm/sec LV V1 max: 125.5 cm/sec PA V2 max: 148.0 cm/sec Ao max P.2 mmHg LV V1 max P.3 mmHg PI end-d mayo: 132.1 cm/sec TR max mayo: 365.2 cm/sec TR max P.4 mmHg Interpretation Summary Normal LV size. Left ventricular systolic function is normal. The estimated ejection fraction is 60 %. Mild to moderate (1-2+) tricuspid valve insufficiency. Pulmonary artery systolic pressure is 60 mmHg. Ordering Physician: Israel Camarena Performed By: China Islas, CALLIE, RVT
[2019-08-03] MEDS: 0.9% Normal Saline 1,000 ML 175 ML IV ×3 (09:39→21:45)
[2019-08-03 10:51] LABS: Amphetamine Urine VISTA POSITIVE (<1000 ng/mL); Barbiturate Urine VISTA NEGATIVE (< 200 ng/mL); Benzodiazepine Urine VISTA NEGATIVE (< 200 ng/mL); Cocaine Urine VISTA NEGATIVE (< 300 ng/mL); Ecstacy Urine VISTA NEGATIVE (< 500 ng/mL); Methadone Urine VISTA NEGATIVE (< 300 ng/mL); PCP Urine VISTA NEGATIVE (< 25 ng/mL); THC Urine VISTA NEGATIVE (< 50 ng/mL); Vista UDS pH Range 5
[2019-08-03] MEDS: Buprenorphine HCl 2 MG TAB.SUBL SL ×2 (10:54→17:31)
[2019-08-03 14:18] LABS: M R Staph aureus DNA By PCR Negative (Negative); Probe Check PASS; Specimen Processing Control PASS
[2019-08-04] VITALS (18 sets, daily range): BP systolic 101–133; BP diastolic 51–83; PULSE 70–103; RESP 12–97; TEMP 36.6–37.4; O2SAT 92–100
[2019-08-04] MEDS: Buprenorphine HCl 2 MG TAB.SUBL SL ×3 (02:03→17:10)
[2019-08-04] MEDS: 0.9% Normal Saline 1,000 ML 175 ML IV (03:32)
--- NOTE | 2019-08-04 06:46 | PCM.PN.INT ---
Subjective: Patient did well overnight. Patient has remained hemodynamically stable. Patient tolerating p.o. diet. No chest pain is reported. General: Alert, Oriented x3, Cooperative, No apparent distress, Well developed, Well nourished, - - No conversational dyspnea HEENT: Atraumatic, PERRLA, EOMI, Normocephalic Oral: Moist Mucosa, No Gingival or Mucosal Lesions/ Ulcerations Neck: Supple, No JVD, No Nodes, Trachea Midline Lungs: Clear to auscultation, Normal air movement, No rhonchi, No wheeze, No rales, - - Symmetric expansion. No dullness to percussion. Cardiovascular: Regular rate, Regular Rhythm, Normal S1, Normal S2, No murmurs, No rub noted, No Gallop Abdomen: Bowel Sounds Present, Soft, Non Tender, Non-Distended Extremities: No clubbing, No cyanosis, No edema Skin: No rashes, No breakdown Musculoskeletal: No Tenderness to Palpation of Joints or Extremities Lymphatic: No Cervical, Supraclavicular, or Inguinal Adenopathy Neurological: Cranial nerves II-XII grossly intact, Neuro grossly intact, Motor Exam 5/5 strength throughout Psych/Mental Status: Alert and oriented to time, place, person, mood and affect Vital Signs Temp Pulse Resp BP Pulse Ox 37.3 C 89 16 109/62 94 08/04/19 04:00 08/04/19 06:00 08/04/19 06:00 08/04/19 06:00 08/04/19 06:00 Oxygen Delivery Method Room Air Weight: 76 kg Body Mass Index (BMI) 21.4 Intake and Output for Last 24 Hours 08/02/19 08/03/19 08/04/19 23:59 23:59 23:59 Intake Total 7193.79 / 7827.54 1966.08 / 1966.08 Output Total 540 / 890 1550 / 1550 Balance 6653.79 / 6937.54 416.08 / 416.08 Labs (Last 48 Hours) 08/03/19 08/03/19 08/03/19 05:31 05:31 07:00 WBC 16.5 H RBC 4.04 L Hgb 12.2 L Hct 35.4 L MCV 87.6 MCH 30.2 MCHC 34.5 RDW Std Deviation 41.1 RDW Coeff of Marquita 12.8 Plt Count 219 MPV 9.0 Immature Gran % (Auto) 0.800 Neut % (Auto) 85.0 H Lymph % (Auto) 4.8 L [place] % (Auto) 9.3 Eos % (Auto) 0.0 Baso % (Auto) 0.1 Absolute Neuts (auto) 14.1 H Absolute Lymphs (auto) 0.80 L Nucleated RBC % 0 [address] Review May foll Sodium 138 Potassium 4.8 Chloride 105 Carbon Dioxide 25.0 Anion Gap 8 BUN 16 Creatinine 1.21 Estim Creat Clear Calc 95.18 Est GFR (MDRD) Af Amer 98 Est GFR (MDRD) Non-Af 81 BUN/Creatinine Ratio 13.2 Glucose 84 Lactic Acid 1.1 Calcium 8.1 L Troponin I 0.804 H* Urine Opiates Screen Urine Methadone Screen Ur Barbiturates Screen Ur Phencyclidine Scrn Ur Amphetamines Screen U Methamphetamin-MDMA U Benzodiazepines Scrn Urine Cocaine Screen U Cannabinoids Screen Ur Drug Screen Comment MRSA (PCR) 08/03/19 08/03/19 08/03/19 09:40 09:40 10:20 WBC RBC Hgb Hct MCV MCH MCHC RDW Std Deviation RDW Coeff of Marquita Plt Count MPV Immature Gran % (Auto) Neut % (Auto) Lymph % (Auto) [place] % (Auto) Eos % (Auto) Baso % (Auto) Absolute Neuts (auto) Absolute Lymphs (auto) Nucleated RBC % Diff Path Review Sodium Potassium Chloride Carbon Dioxide Anion Gap BUN Creatinine Estim Creat Clear Calc Est GFR (MDRD) Af Amer Est GFR (MDRD) Non-Af BUN/Creatinine Ratio Glucose Lactic Acid Calcium Troponin I 0.757 H* Urine Opiates Screen NEGATIVE Urine Methadone Screen NEGATIVE Ur Barbiturates Screen NEGATIVE Ur Phencyclidine Scrn NEGATIVE Ur Amphetamines Screen POSITIVE H U Methamphetamin-MDMA NEGATIVE U Benzodiazepines Scrn NEGATIVE Urine Cocaine Screen NEGATIVE U Cannabinoids Screen NEGATIVE Ur Drug Screen Comment MRSA (PCR) Negative Clinical Impression(s) from Imaging Studies Chest X-Ray 08/03/19 07:09 IMPRESSION: Placement of central venous catheter as above Mild bibasilar infiltrates Electronically Signed: Star Zhu, at 7:46 EST Tel , Service support , Medical Necessity - Tobacco Use Smoking Status: Current every day smoker Tobacco Use: Cigarettes Assessment/Plan All Active Problems Aspiration pneumonitis (Acute) Elevated troponin (Acute) Septic shock (Acute) Accidental heroin overdose (Acute) RECOMMENDATIONS: 1. Okay to transition to Augmentin from my perspective 2. Increase activity as tolerated 3. Await results of cultures 4. Await echocardiogram. 5. Okay to transfer from the intensive care unit from my perspective IMPRESSIONS: 1. Distributive shock Resolved. Patient does have some findings on CTA of the chest suggestive of possible early aspiration. Patient has responded well to Unasyn therapy. Patient is able to take p.o., so transition to Augmentin would be okay. Cannot exclude endocarditis or other infectious etiology associated with IV drug use. Await cultures. Reasonable to complete 7 days of antibiotics even if cultures are negative given lung findings. 2. History of heroin dependency with overdose The patient's acute intoxication was reversed with Narcan. He will remain on Buprenorphine along with as needed medications to control any symptoms of withdrawal. 3. Troponin elevation Troponins are relatively unremarkable given clinical course. Patient does not have any significant EKG changes noted. Echocardiogram is currently pending. Clinical suspicion for supply demand mismatch secondary to opiate overdose. More concern for possible endocarditis and coronary artery disease. Code Visit Inpatient E&M: 66946 Subs Hosp L2
--- NOTE | 2019-08-04 09:58 | CASEMGMT ---
RN CM Note: Attempted to complete RN CM Assessment. Pt is having Echo completed at this time. Carmella DIASN RN ACM
--- NOTE | 2019-08-04 10:21 | PN_ITS ---
Patient Problems: Active and Suspected Problems Aspiration pneumonitis (Acute) Elevated troponin (Acute) Septic shock (Acute) Accidental heroin overdose (Acute) Reason for Visit: OD Subjective: Breathing well. States that he has OD'd several times previously. States that he wants to quit narcs and is accepting of treatment. Vitals/I&O's: Vital Signs Temp Pulse Resp BP Pulse Ox 37.3 C 85 97 H 109/60 96 08/04/19 04:00 08/04/19 09:00 08/04/19 09:00 08/04/19 09:00 08/04/19 08:00 Oxygen Delivery Method Room Air Weight: 76 kg Body Mass Index (BMI) 21.4 Intake and Output for Last 24 Hours 08/02/19 08/03/19 08/04/19 23:59 23:59 23:59 Intake Total 7193.79 / 7827.54 2365.66 / 2365.66 Output Total 540 / 890 1550 / 1550 Balance 6653.79 / 6937.54 815.66 / 815.66 General: Alert, No apparent distress HEENT: Atraumatic, PERRLA, EOMI, Normocephalic Oral: Moist Mucosa, No Gingival or Mucosal Lesions/ Ulcerations Neck: No Nodes, Trachea Midline Lungs: Clear to auscultation, Normal air movement, No rhonchi, No wheeze, No rales Cardiovascular: Regular rate, Regular Rhythm, Normal S1, Normal S2, No murmurs Abdomen: Bowel Sounds Present, Soft, Non Tender, Non-Distended, No Hepato- splenomegaly Extremities: No edema, No Calf Tenderness Skin: No rashes, No breakdown Musculoskeletal: No Tenderness to Palpation of Joints or Extremities, No Muscle Wasting Psych/Mental Status: Appropriate, Flat Affect Laboratory Results 08/03/19 09:40: Troponin I 0.757 H* 08/03/19 09:40: MRSA (PCR) Negative 08/03/19 10:20: Urine Opiates Screen NEGATIVE, Urine Methadone Screen NEGATIVE, Ur Barbiturates Screen NEGATIVE, Ur Phencyclidine Scrn NEGATIVE, Ur Amphetamines Screen POSITIVE H, U Methamphetamin-MDMA NEGATIVE, U Benzodiazepines Scrn NEGATIVE, Urine Cocaine Screen NEGATIVE, U Cannabinoids Screen NEGATIVE, Ur Drug Screen Comment Current Medications Buprenorphine HCl (Buprenorphine Hcl) 2 mg SL Q8H DEBBIE; Taper Stop: 08/06/19 13:59 Last Admin: 08/04/19 10:20 Dose: 2 mg Documented by: Dicyclomine HCl (Bentyl) 20 mg PO Q6H PRN PRN PRN Reason: Abdomnial Discomfort Ampicillin Sodium/Sulbactam (Sodium 3 gm/ Sodium Chloride) 112 mls @ 150 mls/hr IV Q6 DEBBIE Last Infusion: 08/04/19 06:28 Dose: Infused Documented by: Sodium Chloride () 250 mls @ 15 mls/hr IV .[id number] PRN PRN Reason: Saline Flush Sodium Chloride () 250 mls @ 15 mls/hr IV .[id number] PRN PRN Reason: Additional IVPB Infusion Methocarbamol (Methocarbamol) 750 mg PO Q6H PRN PRN PRN Reason: Muscle Aches Pramipexole Dihydrochloride (Mirapex) 0.25 mg PO Q12H PRN PRN PRN Reason: Restless Legs Sodium Chloride () 10 - 40 ml IV UD PRN PRN Reason: Multilumen/Gonzales Flush Sodium Chloride (0.9% Nacl (Sterile) Posiflush) 10 - 40 ml IV UD PRN PRN Reason: Port access or dressing change Sodium Chloride () 10 - 40 ml IV UD PRN PRN Reason: SALINE FLUSH STROKE Vital Signs/Narrative: Vital Signs Pulse Resp BP Pulse Ox 08/04/19 09:00 85 97 H 109/60 08/04/19 08:00 77 18 133/83 H 96 08/04/19 07:52 75 08/04/19 07:00 81 14 105/55 L 98 Medical Necessity - Tobacco Use Smoking Status: Current every day smoker Tobacco Use: Cigarettes Assessment/Plan All Active Problems Aspiration pneumonitis (Acute) Elevated troponin (Acute) Septic shock (Acute) Accidental heroin overdose (Acute) Assessment: 1. Septic shock--resolved 2. aspiration pneumonia, improving 3. unintentional overdose from heroin 4. heroin abuse and addiction 5. NSTEMI: likely type 2 (demand) from overdose Plan: 1. Continue buprenorphine taper for opiate withdrawal 2. transition abx to amox/CA for 7 total days (through the ) 3. CM to assist with outpt addiction program when he is released 4. SC TLC dc today 5. Transfer to PCU 6. check echo 7. stress test 8. ASA for now Code Visit Inpatient E&M: 20505 Subs Hosp L2
--- NOTE | 2019-08-04 10:30 | NURSING ---
Patient reports he smokes 1ppd. Patient verbalized understanding of [facility]'s non smoking policy and verbalizes understanding that he cannot leave the floor because of his central line access. Agreeable to nicotine patch at this time, I will contact MD for the patch.
--- NOTE | 2019-08-04 10:58 | CASEMGMT ---
Social Work Consult: Substance Abuse Informant: Self-Referral Met with patient in room. Introduced self as well as medical social consultant role. Patient agreeable to meet with this medical social consultant. Patient currently lives with father and is stating to have positive support from family and friends. Patient stating that substance of choice is Heroine. Patient stating to smoke 1 ppd of tobacco. Patient denies any other substance abuse/use. Patient denies any history of substance abuse support/detox. Patient stating to be unemployed and to have just gotten out of half-way on July 18 after two months for possession. Patient confirming to have no insurance or primary care physician. Patient stating to have license suspended and that family provides patient with transportation to appointments. Patient stating to have limited financial support. Patient denies any current or history of suicidal thoughts or attempts/plans. Inquiring if patient would like to detox and participate in a program to help patient with substance abuse. Patient stating to want help with this. Exploring patient options, patient is wanting to follow-up with [facility] at a walk in appointment. Offered to contact [facility] with patient to assist in facilitating conversation, patient declining stating to have plans to go to [facility] after discharge from hospital. Provided patient with information on [facility] and substance abuse resources including support groups. Provided patient with community resources, list of primary care physicians, [facility], and Medicaid application. Encouraging patient to follow up with medicaid application and establishing primary care physician. Patient voicing understanding to all above. Patient presenting with eyes closed during assessment. Inquired if another time would be better. Patient stating I am listening and wanting this medical social consultant to continue with conversation. Patient presenting with minimal initiation with questions/answers, did have to repeat questions multiple times. Patient did thank this medical social consultant. Social work to continue to follow as needed. Myra SPANGLER, LOUISE
--- NOTE | 2019-08-04 10:58 | CASEMGMT ---
RN CM Assessment Presentation: Heroin OD, aspiration pneumonia Intro role of CM and purpose of RN CM assessment to patient. Pt is sleepy, but states he is willing to participate in assessment.. Pt states he lives with his father, verified father's address was on [address] Pt's address is on [address], states his father goes between and states other family lives at his address. PCP: None. Pt does not have insurance at this time. States he goes to ER if medical treatment is needed. Specialists: none Preferred Pharmacy: [facility]. Pt may need prescription assistance on dc if unable to afford his medications Insurance: none Prescription Benefit: none LNOK: Father, Jaziel John Living Arrangements: Lives independently. Denies care needs. Transportation: does not drive. 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 States he has family and friends who can assist. DME: none HHC/SNF: no SW Referral: yes. Substance abuse, nabil gamez information, possible prescription assistance on dc. Patient DC goals: Home DC PLAN: Home. DC plans re: rehab per LORENA. Carmella CARDONA RN ACM
[2019-08-04] MEDS: Aspirin 325 MG Tablet PO (11:26)
--- NOTE | 2019-08-04 11:31 | PCA ---
Per LETY Coon patient stated that he does not want us to make follow-up apts for him.
[2019-08-04] MEDS: BENZOCAINE/MENTHOL 1 LOZENGE MUCOUS MEM ×2 (13:13→17:10)
[2019-08-04 14:17] LABS: Pathologist Review Reviewed
--- NOTE | 2019-08-04 16:27 | CASEMGMT ---
Social Work Following up with how patient is doing. Patient agreeable to speak with this psychologist social again. Patient appearing more alert but continues to have minimal engagement in questions. Patient stating to be feeling better. Reinforced importance of following up with substance abuse support, establishing PCP, and obtaining insurance. Patient voicing understanding and voice to plan to follow up with [facility] at discharge. Patient denies any mental health history or concerns with this. Patient denies any depression or anxiety. Social work to continue to follow as needed. Myra Aguilar MSW, LOUISE
[2019-08-04] MEDS: Ondansetron 8 MG Tablet PO (19:41)
[2019-08-04] MEDS: Amox/Clavulanate 875 MG Tablet PO (21:28)
[2019-08-04] MEDS: Dicyclomine 10 MG Capsule 20 MG PO (22:11)
[2019-08-05] MEDS: Buprenorphine HCl 2 MG TAB.SUBL SL (01:17)
[2019-08-05 01:45] VITALS: BP 135/79; PULSE 73; RESP 16; TEMP 36.1; O2SAT 98
[2019-08-05 02:59] VITALS: PULSE 73
[2019-08-05] MEDS: 0.9% Saline Lock 10 ML Syringe IV (04:36)
[2019-08-05 04:57] LABS: Absolute Lymphocyte Count 1.32 X10^3/uL (0.83-4.51); Absolute Neutrophil Count 3.5 X10^3/uL (2.0-7.7); Basophil# 0.02 X10^3/uL; Basophil% 0.4 % (0-1); Eosinophil# 0.13 X10^3/uL; Eosinophils% 2.3 % (0-5); Hematocrit 31.7 % (40-54); Hemoglobin 11.3 g/dL (13.0-16.5); Lymphocyte # 1.32 X10^3/ul (4.0); Lymphocyte % 23.8 % (19-41); Mean Corp Hgb Conc 35.6 g/dL (32-36); Mean Corpuscular Hgb 30.4 pg (27.0-32.0); Mean Corpuscular Volume 85.2 fL (80-94); Mean Platelet Vol. 9.2 fl (6.2-12.0); Monocyte# 0.58 X10^3/uL; Monocyte% 10.5 % (0-10); NRBC Flagged by Analyzer 0 % (0-5); Neutrophil # 3.47 X10^3/uL (2.7-7.7); Neutrophil % 62.6 % (47-70); Platelet Count 194 K/mm3 (150-450); RBC Distribution Width CV 11.9 % (11.6-14.6); RBC Distribution Width SD 36.6 fl (35.1-43.9); Red Blood Count 3.72 M/mm3 (4.6-6.2); White Blood Count 5.5 K/mm3 (4.4-11.0)
--- NOTE | 2019-08-05 05:00 | EKG12_ITS ---
Test Reason : AM EKG Blood Pressure : / mmHG Vent. Rate : 060 BPM Atrial Rate : 060 BPM P-R Int : 106 ms QRS Dur : 082 ms QT Int : 440 ms P-R-T Axes : -12 074 105 degrees QTc Int : 440 ms Sinus rhythm with short ND T wave abnormality, consider anterior ischemia Abnormal ECG When compared with ECG of 03-AUG-2019 05:23, MANUAL COMPARISON REQUIRED, DATA IS UNCONFIRMED Confirmed by ROCIO RAYMUNDO, CLIFTON ([id number]), editor news VIKTORIA FRITZ ([id number]) on 08/08/2019 2:55:05 PM Referred By: TONIO Confirmed By:RAJNI CHAN MD
[2019-08-05 05:13] LABS: ALB/GLOB Ratio 0.8 RATIO (0.9-2.4); AST(SGOT) 95 U/L (15-37); Alanine Aminotransfer ALT/SGPT 283 U/L (16-61); Albumin, Serum 2.7 g/dL (3.2-5.0); Alkaline Phosphatase 77 U/L (45-117); Anion Gap 4 (5-15); BUN 5 mg/dL (7-18); BUN/Creat Ratio 7.5 RATIO (10-20); Calcium,Total 8.5 mg/dL (8.5-10.1); Chloride 105 mmol/L (98-107); Cholesterol 80 mg/dL (200); Creatinine, Serum 0.67 mg/dL (0.70-1.30); EST Glomerular Filtration Rate 160 mL/min (>60); Est Glom Filt Rate - Afr Amer 193 mL/min (>60); Estimated Creatinine Clearance 189.05 ml/min; Globulin 3.2 g/dL (2.2-4.2); Glucose 101 mg/dL (74-106); High Density Lipoprotein 30 mg/dL; Potassium 3.6 mmol/L (3.5-5.1); Protein, Total 5.9 g/dL (6.4-8.2); Sodium Level 140 mmol/L (136-145); Triglycerides 111 mg/dL; Very Low Density Lipoprotein 22 mg/dL (5-40)
[2019-08-05] MEDS: Aspirin 81 MG TAB.CHEW PO (06:08)
[2019-08-05 06:11] VITALS: BP 118/66; PULSE 65; RESP 16; TEMP 36.6; O2SAT 98
[2019-08-05 08:00] VITALS: PULSE 62
--- NOTE | 2019-08-05 08:00 | STE_ITS ---
Reason For Study: DYSPNEA Stress Results Protocol: Stress Echocardiogram Maximum Predicted HR: 200 bpm Target HR: 170 bpm % Maximum Predicted HR: 88 % DurationHeart Rate Stage (mm:ss) (bpm) BP Comment BASELINE 62 120/70NO SX SHAUN PROTOOCOL- STAGE 1 3:00 114 138/78NO SX SHAUN PROTOOCOL- STAGE 2 3:00 120 134/84NO SX SHAUN PROTOCOL- STAGE 3 3:00 130 138/78NO SX SHAUN PROTOOCOL- STAGE 4 2:00 176 / SL DYSPNEA RECOVERY 82 138/70DENIES COMPLAINT Stress Duration: 11:00 mm:ss Maximum Stress HR: 176 bpm METS: 13 Baseline Echocardiogram Findings Stress Echo Wall motion Data Resting WM Intermediate WM Stress WM Resting Wall Motion Wall Motion Stress All segments Normal. All segments Hyperkinetic. Ejection Fraction 60 %. Ejection Fraction 70 %. Stress Results Heart rate response: Appropriate Blood pressure response: Normal resting blood pressure-appropriate response Arrhythmias: None Functional capacity: Good Stopped secondary to: Dyspnea. EKG Data Baseline ECG: Sinus versus ectopic atrial rhythm; nonspecific T wave abnormality. Exercise ECG: Somatic/motion artifact with no obvious ECG changes. Symptoms with Stress No complaint of chest discomfort during exercise or recovery. Interpretation Summary Negative (adequate) stress echocardiogram Ordering Physician: Denys Greene Referring Physician: NO PCP Performed By: Gabriela Schreiber RDCS
[2019-08-05 08:10] VITALS: BP 119/57; PULSE 62; RESP 16; TEMP 36.8; O2SAT 95
--- NOTE | 2019-08-05 08:43 | NURSING ---
pt off unit for stress test-
[2019-08-05] MEDS: Amox/Clavulanate 875 MG Tablet PO (09:37)
--- NOTE | 2019-08-05 09:38 | NURSING ---
pt returned from stress test- resting in bed. denies complaints
[2019-08-05] MEDS: Ondansetron 8 MG Tablet PO (09:43)
[2019-08-05 10:21] VITALS: O2SAT 91
--- NOTE | 2019-08-05 10:21 | PN_ITS ---
Subjective: Patient transferred to the floor yesterday and reports he is ready to go home. Patient denies any chest pain, abdominal pain, nausea or vomiting. Patient is not reporting any dyspnea on exertion, but states he has not been out of the room very often. Objective: Echocardiogram showed no RV dilation, but pulmonary artery pressures are reported at 60 with a preserved ejection fraction of 60%. No vegetations were reported. General: Alert, Oriented x3, Cooperative, No apparent distress, Well developed, Well nourished, - - Somewhat flat affect, but answers appropriately HEENT: Atraumatic, PERRLA, EOMI, Normocephalic, - - No scleral icterus or injection noted Oral: Moist Mucosa, No Gingival or Mucosal Lesions/ Ulcerations Neck: Supple, No JVD, No Nodes, Trachea Midline Lungs: Clear to auscultation, Normal air movement, No rhonchi, No wheeze, No rales, - - Symmetric expansion. No dullness to percussion. Cardiovascular: Regular rate, Regular Rhythm, Normal S1, Normal S2, No murmurs, No rub noted, No Gallop Abdomen: Bowel Sounds Present, Soft, Non Tender, Non-Distended Extremities: No clubbing, No cyanosis, No edema, Capillary Refill Less than 3 Seconds Skin: No rashes, No breakdown Musculoskeletal: No Tenderness to Palpation of Joints or Extremities Lymphatic: No Cervical, Supraclavicular, or Inguinal Adenopathy Neurological: Cranial nerves II-XII grossly intact, Neuro grossly intact, Motor Exam 5/5 strength throughout Psych/Mental Status: Alert and oriented to time, place, person, mood and affect Vital Signs Temp Pulse Resp BP Pulse Ox 36.8 C 62 16 119/57 L 95 08/05/19 08:10 08/05/19 08:10 08/05/19 08:10 08/05/19 08:10 08/05/19 08:10 Oxygen Delivery Method Room Air Weight: 71.3 kg Body Mass Index (BMI) 21.4 Intake and Output for Last 24 Hours 08/03/19 08/04/19 08/05/19 23:59 23:59 23:59 Intake Total 7193.79 / 7827.54 3565.66 / 3565.66 Output Total 540 / 890 1550 / 1550 Balance 6653.79 / 6937.54 Labs (Last 48 Hours) 08/03/19 08/03/19 08/03/19 05:31 09:40 09:40 WBC RBC Hgb Hct MCV MCH MCHC RDW Std Deviation RDW Coeff of Marquita Plt Count MPV Immature Gran % (Auto) Neut % (Auto) Lymph % (Auto) [place] % (Auto) Eos % (Auto) Baso % (Auto) Absolute Neuts (auto) Absolute Lymphs (auto) Nucleated RBC % Diff Path Review Reviewed Sodium Potassium Chloride Carbon Dioxide Anion Gap BUN Creatinine Estim Creat Clear Calc Est GFR (MDRD) Af Amer Est GFR (MDRD) Non-Af BUN/Creatinine Ratio Glucose Calcium Total Bilirubin AST ALT Alkaline Phosphatase Troponin I 0.757 H* Total Protein Albumin Globulin Albumin/Globulin Ratio Triglycerides Cholesterol LDL Cholesterol VLDL Cholesterol HDL Cholesterol Urine Opiates Screen Urine Methadone Screen Ur Barbiturates Screen Ur Phencyclidine Scrn Ur Amphetamines Screen U Methamphetamin-MDMA U Benzodiazepines Scrn Urine Cocaine Screen U Cannabinoids Screen Ur Drug Screen Comment MRSA (PCR) Negative 08/03/19 08/05/19 08/05/19 10:20 04:45 04:45 WBC 5.5 RBC 3.72 L Hgb 11.3 L Hct 31.7 L MCV 85.2 MCH 30.4 MCHC 35.6 RDW Std Deviation 36.6 RDW Coeff of Marquita 11.9 Plt Count 194 MPV 9.2 Immature Gran % (Auto) 0.400 Neut % (Auto) 62.6 Lymph % (Auto) 23.8 [place] % (Auto) 10.5 H Eos % (Auto) 2.3 Baso % (Auto) 0.4 Absolute Neuts (auto) 3.5 Absolute Lymphs (auto) 1.32 Nucleated RBC % 0 Diff Path Review Sodium 140 Potassium 3.6 Chloride 105 Carbon Dioxide 31.0 Anion Gap 4 L BUN 5 L Creatinine 0.67 L Estim Creat Clear Calc 189.05 Est GFR (MDRD) Af Amer 193 Est GFR (MDRD) Non-Af 160 BUN/Creatinine Ratio 7.5 L Glucose 101 Calcium 8.5 Total Bilirubin 1.20 H AST 95 H ALT 283 H Alkaline Phosphatase 77 Troponin I Total Protein 5.9 L Albumin 2.7 L Globulin 3.2 Albumin/Globulin Ratio 0.8 L Triglycerides 111 Cholesterol 80 LDL Cholesterol 28 VLDL Cholesterol 22 HDL Cholesterol 30 L Urine Opiates Screen NEGATIVE Urine Methadone Screen NEGATIVE Ur Barbiturates Screen NEGATIVE Ur Phencyclidine Scrn NEGATIVE Ur Amphetamines Screen POSITIVE H U Methamphetamin-MDMA NEGATIVE U Benzodiazepines Scrn NEGATIVE Urine Cocaine Screen NEGATIVE U Cannabinoids Screen NEGATIVE Ur Drug Screen Comment MRSA (PCR) Microbiology 08/03/19 10:20 Urine, Clean Catch Urine Culture - Preliminary Culture exhibits no growth. Medical Necessity - Tobacco Use Smoking Status: Current every day smoker Tobacco Use: Cigarettes Assessment/Plan All Active Problems Aspiration pneumonitis (Acute) Elevated troponin (Acute) Septic shock (Acute) Accidental heroin overdose (Acute) RECOMMENDATIONS: 1. Okay to transition to Augmentin from my perspective and complete a 7-day course 2. Walking oximetry prior to discharge 3. Outpatient follow-up in our office in 2 weeks with nurse practitioner 4. Outpatient follow-up with cardiology for right heart catheterization 5. Immune work-up to be completed as an outpatient 6. Okay to discharge if no supplemental oxygen is required on ambulation. IMPRESSIONS: 1. Distributive shock Resolved. Patient does have some findings on CTA of the chest suggestive of possible early aspiration. Patient has responded well to Unasyn therapy. Patient is able to take p.o., so transition to Augmentin would be okay. Reasonable to complete 7 days of antibiotics even if cultures are negative given lung findings. 2. History of heroin dependency with overdose The patient's acute intoxication was reversed with Narcan. He will remain on Buprenorphine along with as needed medications to control any symptoms of withdrawal. 3. Troponin elevation Troponins are relatively unremarkable given clinical course. Patient does not have any significant EKG changes noted. Echocardiogram is currently pending. Clinical suspicion for supply demand mismatch secondary to opiate overdose. More concern for possible endocarditis and coronary artery disease. 4. Possible pulmonary hypertension Unclear etiology at this time. Patient did have some groundglass opacities and may have a connective tissue disease. Other possibilities would be misleading echocardiogram or possible toxic driven pulmonary hypertension. Patient should have a walking oximetry prior to discharge. If patient requires supplemental oxygen, inpatient right heart catheterization would likely be indicated. If patient does not require supplemental oxygen, outpatient autoimmune work-up and right heart catheterization would be appropriate for evaluation. Patient should also have a complete pulmonary function test to see if there is restriction. Code Visit Inpatient E&M: 14020 Subs Hosp L2
--- NOTE | 2019-08-05 10:35 | CASEMGMT ---
SW spoke with patient this am. SW introduced self and role at [facility]. SW asked patient if he had any questions regarding the information the SW gave him yesterday. SW told him there is a Medicaid application in the packet as well as information on Trish Mendez, list of PCP's, information on [facility] and other substance abuse treatment options in [facility]. Patient said he did not have any questions and does not need any further assistance. Mimi GIL MSW
--- NOTE | 2019-08-05 10:38 | NURSING ---
Pt walked 10 laps around hallway= this RN then asked pt to completed walking spo2. Pt spo2= 91% at lowest but averaged around 93%
--- NOTE | 2019-08-05 12:45 | CHAPLAIN ---
Type of Pastoral Visit _x__ Initial Visit ___ Follow-up Visit ___ On-call Visit ___ General Patient Visit ___ Spiritual Assessment ___ Family Conference ___ Bereavement ___ Rapid Response ___ Code Blue ___ Other (describe below) Pastoral Care Referral From _x__ Patient ___ Family ___ Nurse ___ Physician ___ Cupola Mechanic ___ Certified Hyperbaric Technologist ___ Other (describe below) Sacrament/Intervention _x__ Active listening ___ Anointing ___ Pentecostal ___ Bereavement ___ Communion _x__ Keyanna exploration ___ _x__ Life review _x__ Prayer ___ Reconciliation ___ Sacrament of Sick _x__ Supportive presence ___ Wedding ___ Other (describe below) Pastoral Comments patient spoke about his recent OD; pt would like a Bible and this was given to him; pt is open to keyanna based support group near his home
--- NOTE | 2019-08-05 12:57 | DCINST_ITS ---
- Discharge Diagnoses Current Active Problems: Current Active and Chronic Problems Aspiration pneumonitis (Acute) Elevated troponin (Acute) Septic shock (Acute) Accidental heroin overdose (Acute) You will use the following diet at home:: No restrictions Your food should be the consistency of: Regular Your liquids should be the consistency of: Regular/Thin Discharge Activity: Return to Normal Activity Call your doctor if you observe: Shortness of breath, Chest pain, - - overdose Allergies/Adverse Reactions: Allergies No Known Allergies Allergy (Verified 08/02/19 23:47) Medications to take at Discharge Amox/Clavulanate Tablet [Augmentin Tablet] 875 mg PO BID #10 tab 08/05/19 The following prescriptions were given: Amox/Clavulanate Tablet [Augmentin Tablet] 875 mg PO BID #10 tab Transmission Status: Pending to [facility] Primary Care Physician: Care Physician,No Primary [Primary Care Provider] - Test Results: Test results from this visit will be discussed in further detail at your follow- up appointment, if applicable. Please Follow Up With: Tristan Lerma MD - primary care physician When: 2 weeks Please Follow Up With: [facility] - cardiology When: 4-6 weeks Please Follow Up With: Sara Lang NP-C - pulmonology When: 2 weeks Please Follow Up With: Addiction meeting When: 1 week Proposed Discharge Date: 08/05/19
--- NOTE | 2019-08-05 13:00 | PCM.DC.SUM ---
Discharge Date and Diagnosis - Problem List Patient Problems: Active and Suspected Problems Aspiration pneumonitis (Acute) Elevated troponin (Acute) Septic shock (Acute) Accidental heroin overdose (Acute) Date of Admission: 08/03/19 Date of Discharge: 08/05/19 - Primary Discharge Diagnosis Active and Suspected Problems Aspiration pneumonitis (Acute) Elevated troponin (Acute) Septic shock (Acute) Accidental heroin overdose (Acute) NSTEMI--demand ischemia pulmonary hypertension Hospital Course and Treatment Imaging Results: 08/05/19 08:00 Stress Test Echo w/o Contrast [ECHO] Routine Clinical Impression(s) from Imaging Studies Chest CTA 08/03/19 05:05 IMPRESSION: 1. No pulmonary embolus detected. 2. Bilateral lower lobe groundglass opacities, possibly related to early/mild pneumonia or aspiration. Individualized dose optimization techniques were used for this CT. at 0627 Reported and signed by: Kristi Marquis MD Electronically Signed: Kristi Marquis MD at 6:27 EST Tel , Service support , Chest X-Ray 08/03/19 07:09 IMPRESSION: Placement of central venous catheter as above Mild bibasilar infiltrates Electronically Signed: Star Zhu at 7:46 EST Tel , Service support , [facility] pulmonology Operations: None Procedures: 2-D Echocardiogram, Central line placement, Stress test Summary of Care Provided: The patient is a 18 year old M found unresponsive with agonal respirations. Patient received Narcan in the field by EMS. Patient responded well but was hypotensive. Patient received fluid boluses and was brought to the emergency room. Patient had a CT of the chest that showed bilateral lower lobe groundglass opacities. Patient was started on antibiotics and admitted to the ICU. Patient was on levo fed for the hypotension. The hypotension may be septic due to the pneumonia versus distributive given the overdose and dehydration. Did overall improve with fluids as well as vasopressors. Patient was eventually taken off of vasopressors. Patient did have troponins that were checked and I came back at 0.8. [place] to be type II event due to the overdose, hypotension. Patient underwent a stress test that was unremarkable. Patient under our go a echocardiogram that showed normal EF but sequently elevated pulmonary pressures of 60 mmHg. Today, the patient is feeling better patient was treated for some opiate withdrawal which he was having some diaphoresis.. Patient met with [facility] and states that he will follow-up with and program affiliated with a [facility]lev[facility] near where the patient lives. And patient will continue with antibiotics through the 26 complete a 7-day course of antibiotics. Patient will need follow-up with pulmonology for his pulmonary pretension but also with cardiology to have a right heart catheterization to verify if these pressures are indeed accurate. Etiology of his pulmonary pretension is unclear. Patient did have CT angiogram of the chest that did not show any pulmonary embolism. Patient does smoke methamphetamines which could do that but also potentially the cutting agents used with his heroin and methamphetamines. [] Patient Problems: Active and Suspected Problems Aspiration pneumonitis (Acute) Elevated troponin (Acute) Septic shock (Acute) Accidental heroin overdose (Acute) - Physical Exam Vitals/I&O's: Vital Signs Temp Pulse Resp BP Pulse Ox 36.8 C 62 16 119/57 L 91 08/05/19 08:10 08/05/19 08:10 08/05/19 08:10 08/05/19 08:10 08/05/19 10:21 Oxygen Delivery Method Room Air Weight: 71.3 kg Body Mass Index (BMI) 21.4 Intake and Output for Last 24 Hours 08/03/19 08/04/19 08/05/19 23:59 23:59 23:59 Intake Total 7193.79 / 7827.54 3565.66 / 3565.66 240 / 240 Output Total 540 / 890 1550 / 1550 Balance 6653.79 / 6937.54 / 2014. 240 / 240 General: Alert, Cooperative, No apparent distress HEENT: Atraumatic, Normocephalic Psych/Mental Status: Normal Affect, Appropriate Microbiology Past 72 Hours 08/03/19 10:20 Urine, Clean Catch Urine Culture - Preliminary Culture exhibits no growth. Laboratory Results 08/03/19 05:31: Diff Path Review Reviewed 08/05/19 04:45: WBC 5.5, RBC 3.72 L, Hgb 11.3 L, Hct 31.7 L, MCV 85.2, MCH 30.4, MCHC 35.6, RDW Std Deviation 36.6, RDW Coeff of Marquita 11.9, Plt Count 194, MPV 9.2, Immature Gran % (Auto) 0.400, Neut % (Auto) 62.6, Lymph % (Auto) 23.8, [place] % (Auto) 10.5 H, Eos % (Auto) 2.3, Baso % (Auto) 0.4, Absolute Neuts (auto) 3.5, Absolute Lymphs (auto) 1.32, Nucleated RBC % 0 08/05/19 04:45: Sodium 140, Potassium 3.6, Chloride 105, Carbon Dioxide 31.0, Anion Gap 4 L, BUN 5 L, Creatinine 0.67 L, Estim Creat Clear Calc 189.05, Est GFR (MDRD) Af Amer 193, Est GFR (MDRD) Non-Af 160, BUN/Creatinine Ratio 7.5 L, Glucose 101, Calcium 8.5, Total Bilirubin 1.20 H, AST 95 H, ALT 283 H, Alkaline Phosphatase 77, Total Protein 5.9 L, Albumin 2.7 L, Globulin 3.2, Albumin/Globulin Ratio 0.8 L, Triglycerides 111, Cholesterol 80, LDL Cholesterol 28, VLDL Cholesterol 22, HDL Cholesterol 30 L Current Medications Amoxicillin/Clavulanate Potassium (Augmentin Tablet) 875 mg PO BID DEBBIE Stop: 08/10/19 23:59 Last Admin: 08/05/19 09:37 Dose: 875 mg Documented by: Aspirin (Aspirin, Baby) 81 mg PO DAILY@0800 [facility] Last Admin: 08/05/19 06:08 Dose: 81 mg Documented by: Buprenorphine HCl (Buprenorphine Hcl) 2 mg SL Q12H DEBBIE; Taper Stop: 08/06/19 13:59 Last Admin: 08/05/19 01:17 Dose: 2 mg Documented by: Dicyclomine HCl (Bentyl) 20 mg PO Q6H PRN PRN PRN Reason: Abdomnial Discomfort Last Admin: 08/04/19 22:11 Dose: 20 mg Documented by: Sodium Chloride () 250 mls @ 15 mls/hr IV .[id number] PRN PRN Reason: Saline Flush Sodium Chloride () 250 mls @ 15 mls/hr IV .[id number] PRN PRN Reason: Additional IVPB Infusion Methocarbamol (Methocarbamol) 750 mg PO Q6H PRN PRN PRN Reason: Muscle Aches Nicotine (Nicoderm Cq (Pbkc)) 21 mg TRANSDERM. DAILY DEBBIE Last Admin: 08/05/19 09:37 Dose: 21 mg Documented by: Ondansetron HCl (Zofran) 8 mg PO Q8H PRN PRN PRN Reason: NAUSEA Last Admin: 08/05/19 09:43 Dose: 8 mg Documented by: Pramipexole Dihydrochloride (Mirapex) 0.25 mg PO Q12H PRN PRN PRN Reason: Restless Legs Sodium Chloride () 10 - 40 ml IV UD PRN PRN Reason: Multilumen/Gonzales Flush Last Admin: 08/05/19 04:36 Dose: 40 ml Documented by: Sodium Chloride (0.9% Nacl (Sterile) Posiflush) 10 - 40 ml IV UD PRN PRN Reason: Port access or dressing change Sodium Chloride () 10 - 40 ml IV UD PRN PRN Reason: SALINE FLUSH Throat Lozenges (Cepacol Sore Throat Lozenge) 1 lozenge MUCOUS MEM Q2H PRN PRN PRN Reason: throat discomfort Last Admin: 08/04/19 17:10 Dose: 1 lozenge Documented by: Discharge Diet: No Restrictions Discharge Activity: Return to Normal Activity Call your doctor if you observe: Shortness of breath, Chest pain, - - overdose Home Medications: Medications to take at Discharge Amox/Clavulanate Tablet [Augmentin Tablet] 875 mg PO BID #10 tab 08/05/19 Following Prescrptions Were Given to Patient: Amox/Clavulanate Tablet [Augmentin Tablet] 875 mg PO BID #10 tab Transmission Status: Pending to [facility] Primary Care Physician: Care Physician,No Primary [Primary Care Provider] - Please Follow Up With: Tristan Lerma MD - primary care physician When: 2 weeks Please Follow Up With: [facility] - cardiology When: 4-6 weeks Please Follow Up With: Sara Lang NP-C - pulmonology When: 2 weeks Please Follow Up With: Addiction meeting When: 1 week Disposition: Home Minutes spent on discharge:: 32 Patient Condition:: Stable Medical Necessity - Tobacco Use Smoking Status: Current every day smoker Tobacco Use: Cigarettes Meaningful Use Info Meaningful Use Diagnoses (Choose all that apply): None applicable Code Visit Inpatient E&M: 05660 Disch Hosp
== END 2019-08-05 13:50 | disposition home or self-care (01) | DRG 917 ==
LOC: ED 08-03 06:41 → ICU 08-04 00:35 → PCU 08-05 08:37
PROVIDERS: Internal Medicine Critical Care Medicine; Admitting Provider Internal Medicine; Emergency Provider Emergency Medicine
DX: T40.1X1A Poisoning by heroin, accidental (unintentional), initial encounter (principal); A41.9 Sepsis, unspecified organism; J69.0 Pneumonitis due to inhalation of food and vomit; R65.21 Severe sepsis with septic shock; I21.A1 Myocardial infarction type 2; R57.8 Other shock; F11.23 Opioid dependence with withdrawal; I27.20 Pulmonary hypertension, unspecified; R09.02 Hypoxemia; F17.210 Nicotine dependence, cigarettes, uncomplicated; Y92.9 Unspecified place or not applicable
CPT/HCPCS: 36556; 71045; 71275; 80048; 80053; 80061; 80307; 83605; 84484; 85025; 87040; 87086; 87641; 93005; 93017; 93306; 93350; 99285; 99406; J7030; J7050; Q9967; A4216; C1751; J0295

== ENCOUNTER 2019-10-24 06:20 | Emergency (ER) | payer OTHER, MEDICAID, SELFPAY ==
[2019-08-03 08:24] VITALS: BMI 21.4
[2019-10-24] VITALS (9 sets, daily range): BP systolic 112–135; BP diastolic 58–76; PULSE 80–107; RESP 14–21; TEMP 36.7; O2SAT 83–97
[2019-10-24] MEDS: Naloxone 2 MG/2 ML Syringe IV (06:35)
--- NOTE | 2019-10-24 06:36 | ED.VISSUMM ---
- ER Visit Summary Date of Service: 10/24/19 Chief Complaint: Heroin overdose History of Present Illness: The patient is a 18 M who presents after heroin overdose today. Patient states he has a history of heroin abuse. Patient states he has been clean for couple months but relapsed again last night. Patient states he injected heroin. Patient denies any suicidal homicidal ideations. EMS administered 8 mg of Narcan intranasally then placed an IO needle. Patient was given 4 mg IO. Patient is drowsy but is awake to verbal stimuli. Patient admits to some shortness of breath but denies any chest pain. Patient denies any recent fevers or chills. Physical Examination: Vital signs are stable except for mild tachycardia of 107. Patient is afebrile. Patient has a pulse oximeter of 83% on room air. Patient is in no acute distress. Oral mucosa is pink and moist. Neck is supple. Trachea is midline. There is no JVD. Heart was regular and mildly tachycardic. Lungs are clear and equal bilaterally. Abdomen is soft. Bowel sounds are normal. There is no tenderness. Cranial nerves II through XII are intact. There are no focal motor or sensory deficits noted. There is an IO line in the left tibia. There is no edema. Skin is warm and dry. There are no abscesses but there are track mathis noted in the left antecubital fossa. Test Results: CBC is within normal limits. Comprehensive metabolic profile was ordered and is pending. Serum alcohol and urine tox screen were ordered and are pending. Portable chest x-ray was ordered and shows bilateral perihilar infiltrates on my interpretation. Radiologist interpretation is pending. Emergency Department Course and Treatment: Patient was given another dose of 2 mg of Narcan IO. Patient is more awake and alert. Patient was given IV fluids. Patient will be observed in the emergency department. Care of the patient was turned over to the oncoming physician pending labs and reevaluation. Disposition: Pending per oncoming physician Impression: 1. Heroin overdose This note was generated with ASSET4 dictation software. It may contain incorrect words, spelling, and punctuation that were not noted in review of the chart prior to signing ED Disposition - Plan for ED Patient: Disposition: Home or Assisted Living Diagnosis: Accidental heroin overdose Instructions: ED Abuse Narcotic, ED Overdose Opiate Referrals: Care Physician,No Primary [Primary Care Provider] - Trish Mendez [NON-STAFF] - 3-5 Days
[2019-10-24] MEDS: 0.9% Normal Saline 1,000 ML 1000 ML IV (06:47)
--- NOTE | 2019-10-24 06:50 | RAD_ITS ---
STUDY: X-RAY CHEST REASON FOR EXAM: Male, 18 years old. overdose, hypoxia TECHNIQUE: Single AP portable view of the chest. COMPARISON: None. FINDINGS: Ill-defined subpleural groundglass opacities are seen more prominent in the perihilar regions and the right and left lung upper lobes, may represent aspiration. There is no demonstrated pleural abnormality. Normal size heart. Normal mediastinum and junior. Normal visualized pulmonary arteries. Normal visualized aortic arch and descending thoracic aorta. Normal visualized thoracic spine. Normal visualized ribs, clavicles, and shoulders. There is no demonstrated abnormality of the visualized soft tissue structures of the upper abdomen. RAD/Chest 1 View (Portable) IMPRESSION: Ill-defined subpleural groundglass opacities are seen more prominent in the perihilar regions and the right and left lung upper lobes, may represent aspiration. Electronically Signed: Tony Justin, at 7:06 EDT Tel , Service support ,
[2019-10-24 06:55] LABS: Absolute Lymphocyte Count 1.08 X10^3/uL (0.83-4.51); Absolute Neutrophil Count 5.1 X10^3/uL (2.0-7.7); Basophil# 0.02 X10^3/uL; Basophil% 0.3 % (0-1); Eosinophil# 0.08 X10^3/uL; Eosinophils% 1.2 % (0-5); Hematocrit 41.7 % (40-54); Hemoglobin 13.7 g/dL (13.0-16.5); Lymphocyte # 1.08 X10^3/ul (4.0); Lymphocyte % 16.1 % (19-41); Mean Corp Hgb Conc 32.9 g/dL (32-36); Mean Corpuscular Hgb 29.6 pg (27.0-32.0); Mean Corpuscular Volume 90.1 fL (80-94); Monocyte# 0.43 X10^3/uL; Monocyte% 6.4 % (0-10); NRBC Flagged by Analyzer 0 % (0-5); Neutrophil # 5.08 X10^3/uL (2.7-7.7); Neutrophil % 75.6 % (47-70); Platelet Count 214 K/mm3 (150-450); RBC Distribution Width CV 13.3 % (11.6-14.6); RBC Distribution Width SD 43.7 fl (35.1-43.9); Red Blood Count 4.63 M/mm3 (4.6-6.2); White Blood Count 6.7 K/mm3 (4.4-11.0)
[2019-10-24 07:12] LABS: ALB/GLOB Ratio 0.8 RATIO (0.9-2.4); AST(SGOT) 111 U/L (15-37); Alanine Aminotransfer ALT/SGPT 144 U/L (16-61); Albumin, Serum 3.3 g/dL (3.2-5.0); Alcohol, Blood (Medical)-Serum < 3.0 mg/dL; Alkaline Phosphatase 106 U/L (45-117); Anion Gap 11 (5-15); BUN 23 mg/dL (7-18); Calcium,Total 8.3 mg/dL (8.5-10.1); Chloride 105 mmol/L (98-107); Creatinine, Serum 1.21 mg/dL (0.70-1.30); EST Glomerular Filtration Rate 81 mL/min (>60); Est Glom Filt Rate - Afr Amer 97 mL/min (>60); Estimated Creatinine Clearance 92.15 ml/min; Globulin 4.2 g/dL (2.2-4.2); Glucose 168 mg/dL (74-106); Potassium 3.2 mmol/L (3.5-5.1); Protein, Total 7.5 g/dL (6.4-8.2); Sodium Level 141 mmol/L (136-145)
[2019-10-24 07:17] LABS: Mucous, Urine 0 SEEN /hpf (<or=2+); White Blood Cells 0 SEEN /hpf (0-5)
[2019-10-24 07:18] LABS: Glucose, Dipstick 50 mg/dl (Normal); Ketone-Dipstick Negative (Negative); Leukocyte Esterase-Dipstick Negative /ul (Negative); Nitrite-Dipstick Negative (Negative); Occult Blood-Urine 10 /ul (Negative); Protein-Dipstick 100 mg/dl (Negative); Urine Bilirubin Dipstick Negative (Negative); Urine Urobilinogen 1 mg/dl (Normal)
[2019-10-24 07:20] LABS: Color, Urine Yellow (Yellow); Urine Clarity Sl Cldy (Clear)
[2019-10-24 07:26] LABS: Bacteria 1+ /hpf (None Seen); Red Blood Cells-Urine 0-5 SEEN /hpf (0-5); Squamous Epithelial Cells - UA 0-5 SEEN /hpf (0-5)
[2019-10-24 07:32] LABS: Amphetamine Urine VISTA POSITIVE (<1000 ng/mL); Barbiturate Urine VISTA NEGATIVE (< 200 ng/mL); Benzodiazepine Urine VISTA NEGATIVE (< 200 ng/mL); Cocaine Urine VISTA NEGATIVE (< 300 ng/mL); Ecstacy Urine VISTA POSITIVE (< 500 ng/mL); Methadone Urine VISTA NEGATIVE (< 300 ng/mL); PCP Urine VISTA NEGATIVE (< 25 ng/mL); THC Urine VISTA NEGATIVE (< 50 ng/mL); Vista UDS pH Range 6
--- NOTE | 2019-10-24 09:45 | ED.RN ---
pt arouses to name being called and updated on poc. pt asking for some water. still groggy though feeling better will ask for ok for po's. vs stable and pt remains on ra
--- NOTE | 2019-10-24 10:51 | ED.RN ---
pt still very drowsy. opens eyes to verbal but dozes rt back off. spo2 on ra 95% pt knew was in hospital but thought was [facility]. unable to state what day or month. needing cueing to take sips of water with nurse. will monitor
== END 2019-10-24 17:43 | disposition home or self-care (01) ==
PROVIDERS: Emergency Provider Emergency Medicine
DX: T40.4X1A Poisoning by other synthetic narcotics, accidental (unintentional), initial encounter (principal); R00.0 Tachycardia, unspecified; R91.8 Other nonspecific abnormal finding of lung field; Z72.0 Tobacco use
CPT/HCPCS: 71045; 80053; 80307; 80320; 81001; 85025; 96361; 96374; 99285; G0480

== ENCOUNTER 2022-03-18 18:36 | Emergency (ER) | payer OTHER, MEDICAID, SELFPAY ==
[2022-03-18 18:37] VITALS: BP 142/94; PULSE 110; RESP 15; TEMP 36.6; O2SAT 98; BMI 21.5
--- NOTE | 2022-03-18 18:49 | EDS_ITS ---
HPI History of Present Illness Chief Complaint: Abd Pain Informant: patient Onset/Context/Timing Onset: Days (3 days) Context: Gradual Onset Current Severity: Moderate Maximum Severity: Moderate Narrative Narrative: Patient presents with 3-day history of abdominal cramping with nausea, vomiting, diarrhea. No blood associated with the emesis or stool. He reports having a low-grade fever at home. Went to urgent care today because of the continued abdominal cramping and was sent to the emergency room for further testing. PFSH PFSH Medical History no medical history no medical history Home Medications ciprofloxacin HCl 500 mg tablet (Cipro) 500 mg PO BID #20 tabs 03/18/22 [Rx Last Taken Unknown] dicyclomine 20 mg tablet 20 mg PO TID PRN abdominal cramping #14 tabs 03/18/22 [Rx Last Taken Unknown] metronidazole 500 mg tablet 500 mg PO BID 10 days #20 tabs 03/18/22 [Rx Last Taken Unknown] ondansetron 4 mg disintegrating tablet 4 mg PO Q8H PRN nausea and vomiting #10 tabs 03/18/22 [Rx Last Taken Unknown] Allergy/AdvReac Type Severity Reaction Status Date / Time No Known Allergies Allergy Verified 03/18/22 18:37 Surgical History History of tonsillectomy Social History Smoking Status: Current every day smoker tobacco type: cigarettes ROS ROS ED Constitutional Constitutional ED: Denies chills or fever(s) Eyes Eyes: Denies change in vision or discharge from eye(s) ENT ENT ED: Denies discharge from eye(s), rhinorrhea or sore throat Cardiovascular Cardiovascular: Denies chest pain or palpitations Respiratory/Chest Respiratory/Chest: Denies cough or dyspnea Gastrointestinal Gastrointestinal: Reports abdominal pain, nausea and vomiting; Denies diarrhea Genitourinary Genitourinary ED: Denies difficulty urinating or dysuria Musculoskeletal Musculoskeletal: Denies back pain or extremity pain Integumentary Denies Abrasions or rash Neurologic Neurologic: Denies headache(s) or weakness Psychiatric Psychiatric: Denies anxiety or depression Allergic/Immunologic Allergic/Immunologic ED: Denies lip swelling or urticaria EXAM Physical Exam Const Vital Signs: 03/18/22 18:37 03/18/22 21:07 Temperature 97.9 F Temperature Source Temporal Pulse Rate 110 H 96 Respiratory Rate 15 15 Blood Pressure 142/94 H 129/75 H Blood Pressure Mean 110 Pulse Ox 98 99 Oxygen Delivery Method Room Air Positive well nourished and well developed General Appearance ED: well developed HEENT Reports normocephalic and head/scalp atraumatic Eyes PERRL and EOMs intact bilaterally Neck supple Chest Wall inspection of chest normal and palpation of chest normal Resp normal respiratory effort and clear to auscultation bilaterally Cardio regular rate and regular rhythm GI GI Narrative: Mild periumbilical tenderness to palpation. No palpable hernias. Auscultation: hypoactive bowel sounds Palpation: soft and tender Extremity normal to inspection Neuro oriented x3 and no sensory deficits noted Sensorium / Orientation: alert Motor Exam: strength 5/5 throughout Psych mental status grossly normal Skin no rashes or lesions noted MDM MDM MDM Narrative Medical decision making narrative: Patient is given Bentyl, Toradol, Zofran, IV fluids. Lab work obtained along with CT scan of the abdomen and pelvis. Lab Data Attestation: I reviewed the patient's lab results. Labs: Laboratory Results - last 24 hr 03/18/22 03/18/22 19:03 19:03 WBC 7.6 RBC 5.21 Hgb 16.3 Hct 45.1 MCV 86.6 MCH 31.3 MCHC 36.1 H RDW Std Deviation 39.9 RDW Coeff of Marquita 12.6 Plt Count 194 MPV 10.0 Immature Gran % (Auto) 0.400 Neut % (Auto) 67.3 Lymph % (Auto) 14.5 L Wilson % (Auto) 17.0 H Eos % (Auto) 0.4 Baso % (Auto) 0.4 Absolute Neuts (auto) 5.1 Absolute Lymphs (auto) 1.10 Nucleated RBC % 0 Differential Comment SCANNED Sodium 136 Potassium 3.7 Chloride 100 Carbon Dioxide 28.0 Anion Gap 8 BUN 20 H Creatinine 1.02 Estim Creat Clear Calc 114.87 Est GFR (MDRD) Af Amer 116 Est GFR (MDRD) Non-Af 96 BUN/Creatinine Ratio 19.6 Glucose 106 Calcium 9.2 Total Bilirubin 1.50 H Direct Bilirubin 0.37 H AST 27 ALT 86 H Alkaline Phosphatase 72 Total Protein 8.0 Albumin 3.6 Globulin 4.4 H Lipase 47 L Radiography Diagnostic Testing: Clinical Impression(s) from Imaging Studies Abdomen/Pelvis CT 03/18/22 20:52 IMPRESSION: Abnormal intramural thickening of the descending colon without associated diverticulosis. This is suspicious for colitis. This is a new finding when compared to 04/17/2019. Colonoscopy will be very helpful for further evaluation. Electronically Signed: Kolby Ruth MD at 21:13 EDT , Treatment and Re-Evaluation Narrative: Lab work is unremarkable including normal white count and differential. Chemistry studies unremarkable. LFTs reveal mild elevation of total bili at 1.50, direct bili 0.37. ALT is 86 which is less when compared to prior values. Lipase is normal. CT scan is performed. On my interpretation I do not see any obvious abnormalities. Patient has a curfew that he has been back by as he is currently in a nursing home house. I advised him I could go ahead and discharge him and if there is any abnormality on his CT scan I can call him. He would prefer this. 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 Abdominal exam remains benign. Addendum: Patient CT scan returns with intramural thickening of the descending colon with no diverticulosis. This is suspicious for colitis. With patient having reported fever as well as vomiting and diarrhea I will cover him with Cipro and Flagyl. These prescriptions have been sent to the pharmacy for him. We will call him the morning to notify him that there are now 4 prescriptions at the pharmacy waiting for him. Discharge Plan Triage Chief Complaint: Abd Pain ED Provider: Jocelyn Ramon Dx/Rx/DC Orders Clinical Impression: Abdominal pain, Gastroenteritis, Colitis Instructions: ED Gastroenteritis, Viral (Adult), ED Abdominal Pain Unkn Cause Male... Prescriptions: New ondansetron 4 mg tablet,disintegrating 4 mg PO Q8H PRN (Reason: nausea and vomiting) Qty: 10 0RF dicyclomine 20 mg tablet 20 mg PO TID PRN (Reason: abdominal cramping) Qty: 14 0RF ciprofloxacin HCl [Cipro] 500 mg tablet 500 mg PO BID Qty: 20 0RF metronidazole 500 mg tablet 500 mg PO BID 10 Days Qty: 20 0RF Primary Care Provider: Care Physician,No Primary Referrals: Kaykay Amaro MD [Med Staff - [employer]] - As Needed Care Physician,No Primary [Primary Care Provider] - Disposition Disposition: Home, Self Care Discharge Date/Time: 03/18/22 21:08
[2022-03-18 19:14] LABS: Absolute Neutrophil Count 5.1 X10^3/uL (2.0-7.7); Basophil# 0.03 X10^3/uL; Basophil% 0.4 % (0-1); Eosinophil# 0.03 X10^3/uL; Eosinophils% 0.4 % (0-5); Hematocrit 45.1 % (40-54); Hemoglobin 16.3 g/dL (13.0-16.5); Lymphocyte % 14.5 % (19-41); Mean Corp Hgb Conc 36.1 g/dL (32-36); Mean Corpuscular Hgb 31.3 pg (27.0-32.0); Mean Corpuscular Volume 86.6 fL (80-94); Monocyte# 1.29 X10^3/uL; NRBC Flagged by Analyzer 0 % (0-5); Neutrophil % 67.3 % (47-70); POSITIVE COUNT YES; Platelet Count 194 K/mm3 (150-450); RBC Distribution Width CV 12.6 % (11.6-14.6); RBC Distribution Width SD 39.9 fl (35.1-43.9); Red Blood Count 5.21 M/mm3 (4.6-6.2); White Blood Count 7.6 K/mm3 (4.4-11.0)
[2022-03-18] MEDS: Dicyclomine 20 MG/2 ML Vial IM (19:17)
[2022-03-18] MEDS: Ondansetron 4 MG/2 ML Vial IV (19:17)
[2022-03-18 19:18] LABS: Differential Indicated SCAN CRITERIA MET
[2022-03-18] MEDS: 0.9% Normal Saline 1,000 ML 1000 ML IV (19:18)
[2022-03-18] MEDS: Ketorolac 30 MG/ML Syringe IV (19:18)
[2022-03-18 19:25] LABS: AST(SGOT) 27 U/L (15-37); Alanine Aminotransfer ALT/SGPT 86 U/L (16-61); Albumin, Serum 3.6 g/dL (3.2-5.0); Alkaline Phosphatase 72 U/L (45-117); Anion Gap 8 (5-15); BUN 20 mg/dL (7-18); BUN/Creat Ratio 19.6 RATIO (10-20); Bilirubin, Direct 0.37 mg/dL (0.00-0.30); Calcium,Total 9.2 mg/dL (8.5-10.1); Chloride 100 mmol/L (98-107); Creatinine, Serum 1.02 mg/dL (0.70-1.30); EST Glomerular Filtration Rate 96 mL/min (>60); Est Glom Filt Rate - Afr Amer 116 mL/min (>60); Estimated Creatinine Clearance 114.87 ml/min; Globulin 4.4 g/dL (2.2-4.2); Glucose 106 mg/dL (74-106); Lipase 47 U/L (73-393); Potassium 3.7 mmol/L (3.5-5.1); Sodium Level 136 mmol/L (136-145)
[2022-03-18 19:30] LABS: Differential Comment SCANNED
[2022-03-18] MEDS: 0.9% Normal Saline 1,000 ML 150 ML IV (19:49)
--- NOTE | 2022-03-18 20:52 | CT_ITS ---
EXAM: CT ABDOMEN AND PELVIS WITH INTRAVENOUS CONTRAST CLINICAL INDICATION: Abdominal pain. TECHNIQUE: Helically acquired images were obtained of the abdomen and pelvis with intravenous contrast. This CT exam was performed using one or more of the following dose reduction techniques: automated exposure control, adjustment of the mA and/or kV according to patient size, and/or use of iterative reconstruction technique. This report was created using [employer] report generation technology. CONTRAST: 100 mL of IV [id number]. Oral GASTROGRAFIN was also given. RADIATION DOSE: CTDIvol = 10.08 mGy, DLP = 519.08 mGy-cm COMPARISON: CTA chest with contrast 08/03/2019. CT abdomen and pelvis with contrast 04/17/2019. FINDINGS: LOWER THORAX: Unremarkable. Lung bases are clear. No cardiomegaly. No significant pericardial effusion. ABDOMEN: LIVER: Unremarkable. Homogeneous. No focal mass. GALLBLADDER AND BILE DUCTS: Unremarkable. No calcified gallstones. No gallbladder distention or wall edema. No intra- or extrahepatic biliary ductal dilation. PANCREAS: Unremarkable. No focal cystic or solid mass. SPLEEN: Unremarkable. Normal size without focal cystic or solid mass. ADRENALS: Unremarkable. No nodules. KIDNEYS AND URETERS: Unremarkable. Normal renal size and position. No hydronephrosis. STOMACH AND BOWEL: Abnormal intramural thickening of the descending colon. Normal small bowel including the terminal ileum. No stomach or bowel distention. PELVIS: APPENDIX: Normal. BLADDER: Unremarkable. REPRODUCTIVE: Unremarkable as visualized. No mass. ABDOMEN and PELVIS: INTRAPERITONEAL SPACE: Unremarkable. No ascites or other fluid collection. No free air. BONES/JOINTS: Unremarkable. No suspicious lytic or blastic abnormality. SOFT TISSUES: Unremarkable. No discrete abdominal or pelvic wall hernia. VASCULATURE: Unremarkable. Abdominal aorta is non-dilated. LYMPH NODES: Unremarkable. No enlarged lymph nodes. CT/Abdomen/Pelvis WITH Contrast IMPRESSION: Abnormal intramural thickening of the descending colon without associated diverticulosis. This is suspicious for colitis. This is a new finding when compared to 04/17/2019. Colonoscopy will be very helpful for further evaluation. Electronically Signed: Kolby Ruth MD at 21:13 EDT ,
[2022-03-18 21:07] VITALS: BP 129/75; PULSE 96; RESP 15; O2SAT 99
--- NOTE | 2022-03-19 10:37 | ED.RN ---
PER DR GARLAND REQUEST CALL MADE TO ROBI ABOUT HIS CT RESULTS. SHE SENT IN FOR 2 MORE ANTIBIOTICS AND HE IS ALSO AWARE OF THIS.
== END 2022-03-18 21:08 | disposition home or self-care (01) ==
PROVIDERS: Emergency Provider Emergency Medicine; Visit Provider Emergency Medicine
DX: K52.9 Noninfective gastroenteritis and colitis, unspecified (principal); R10.9 Unspecified abdominal pain; F17.210 Nicotine dependence, cigarettes, uncomplicated
CPT/HCPCS: 74177; 80048; 80076; 83690; 85025; 87811; 96361; 96372; 96374; 96375; 99283; J7030; Q9967; A4216; J2405